=== PATIENT | female | born 1945 | race Caucasian/White ===

== ENCOUNTER → 2019-03-30 | Outpatient (CLI) | payer MEDICARE ==
[~2019-03-30] VITALS: Ht 165.1 cm; Wt 39.6 kg
[~2019-03-30] MED LIST: ACET-2247 GT; ACET650S27 PR; AMANL GT; AMIN960L9 GT; AMIO200T44 GT; AMYL1CAP62 GT; APIX2.5T GT; ASCO500 GT; ASPI81TA40 GT; BACI30OI10 TP; BENZ1TAB10 GT; BISA10SU22 PR; CEPH500 GT; CEPH500 PO; FE PR; LACT30L PO; LEVE500T53 GT; LEVO25TA9 GT; LORA10TA7 GT; METO25 GT; MIRT15 GT; MULT-1119 GT; OLAN5TAB2 GT; OMEG10005 GT; SACC250C3 GT; SENN-265 GT; SERT100T12 GT; VITAD1000 GT; [UNRECOGNIZED DRUG - CODE] GT
[2019-03-30 09:40] VITALS: BP 134/64
== END | disposition home or self-care (01) ==
LOC: HBOWC 09:09
PROVIDERS: ATTEND Surgery Plastic and Reconstructive Surgery
DX: L89.154 Pressure ulcer of sacral region, stage 4 (principal); M46.28 Osteomyelitis of vertebra, sacral and sacrococcygeal region; E43 Unspecified severe protein-calorie malnutrition
CPT/HCPCS: 11042; G0463

== ENCOUNTER → 2019-04-17 | Outpatient (CLI) | payer MEDICARE ==
[~2019-04-17] MED LIST changes: -BACI30OI10 TP; -CEPH500 PO; +DIATRIZOATE MEGLU/SOD 660/100 MG/ML 120 ML BOTTLE ONE
== END | disposition home or self-care (01) ==
LOC: RADMN 13:10
PROVIDERS: ATTEND Registered Nurse
DX: K94.23 Gastrostomy malfunction (principal)
CPT/HCPCS: 49450; C1769; Q9963

== ENCOUNTER → 2019-04-20 | Outpatient (CLI) | payer MEDICARE ==
[~2019-04-20] MED LIST changes: -DIATRIZOATE MEGLU/SOD 660/100 MG/ML 120 ML BOTTLE ONE; +LIDOCAINE 4% 50 ML SOLUTION TP ONE
[2019-04-20 13:12] VITALS: BP 103/58
== END | disposition home or self-care (01) ==
LOC: HBOWC 12:48
PROVIDERS: ATTEND Surgery Plastic and Reconstructive Surgery
DX: L89.154 Pressure ulcer of sacral region, stage 4 (principal); M46.28 Osteomyelitis of vertebra, sacral and sacrococcygeal region; E43 Unspecified severe protein-calorie malnutrition
CPT/HCPCS: 11044

== ENCOUNTER → 2019-04-29 | Outpatient (CLI) | payer MEDICARE ==
[~2019-04-29] MED LIST changes: -LIDOCAINE 4% 50 ML SOLUTION TP ONE
[2019-04-29 08:00] VITALS: BP 124/68
== END | disposition home or self-care (01) ==
LOC: HBOWC 07:54
PROVIDERS: ATTEND Internal Medicine
DX: L89.154 Pressure ulcer of sacral region, stage 4 (principal); E43 Unspecified severe protein-calorie malnutrition; M62.58 Muscle wasting and atrophy, not elsewhere classified, other site; M46.28 Osteomyelitis of vertebra, sacral and sacrococcygeal region; E03.9 Hypothyroidism, unspecified; G80.9 Cerebral palsy, unspecified; I48.91 Unspecified atrial fibrillation; F20.9 Schizophrenia, unspecified; F41.9 Anxiety disorder, unspecified; Z86.73 Personal history of transient ischemic attack (TIA), and cerebral infarction without residual deficits; Z68.1 Body mass index [BMI] 19.9 or less, adult; Z79.82 Long term (current) use of aspirin
CPT/HCPCS: 11042; 97605

== ENCOUNTER → 2019-05-11 | Outpatient (CLI) | payer MEDICARE ==
[~2019-05-11] MED LIST changes: +LIDOCAINE 4% 50 ML SOLUTION TP ONE
[2019-05-11 09:05] VITALS: BP 113/60
== END | disposition home or self-care (01) ==
LOC: HBOWC 08:43
PROVIDERS: ATTEND Surgery Plastic and Reconstructive Surgery
DX: L89.154 Pressure ulcer of sacral region, stage 4 (principal); E43 Unspecified severe protein-calorie malnutrition; M62.58 Muscle wasting and atrophy, not elsewhere classified, other site; M46.28 Osteomyelitis of vertebra, sacral and sacrococcygeal region; E03.9 Hypothyroidism, unspecified; G80.9 Cerebral palsy, unspecified; I48.91 Unspecified atrial fibrillation; F20.9 Schizophrenia, unspecified; Z86.73 Personal history of transient ischemic attack (TIA), and cerebral infarction without residual deficits; Z68.1 Body mass index [BMI] 19.9 or less, adult; Z79.82 Long term (current) use of aspirin
CPT/HCPCS: 11042; 87070; 87205

== ENCOUNTER → 2019-05-25 | Outpatient (CLI) | payer MEDICARE ==
[2019-05-25 09:30] VITALS: BP 113/54
== END | disposition home or self-care (01) ==
LOC: HBOWC 09:08
PROVIDERS: ATTEND Surgery Plastic and Reconstructive Surgery
DX: L89.154 Pressure ulcer of sacral region, stage 4 (principal); E46 Unspecified protein-calorie malnutrition; E03.9 Hypothyroidism, unspecified; G80.9 Cerebral palsy, unspecified; M62.58 Muscle wasting and atrophy, not elsewhere classified, other site; M62.462 Contracture of muscle, left lower leg; M62.461 Contracture of muscle, right lower leg; M62.421 Contracture of muscle, right upper arm; M62.422 Contracture of muscle, left upper arm; M46.28 Osteomyelitis of vertebra, sacral and sacrococcygeal region; I48.91 Unspecified atrial fibrillation; F20.9 Schizophrenia, unspecified; F03.90 Unspecified dementia, unspecified severity, without behavioral disturbance, psychotic disturbance, mood disturbance, and anxiety; F41.9 Anxiety disorder, unspecified; Z68.1 Body mass index [BMI] 19.9 or less, adult; Z86.73 Personal history of transient ischemic attack (TIA), and cerebral infarction without residual deficits; Z79.82 Long term (current) use of aspirin; Z74.01 Bed confinement status
CPT/HCPCS: 11042

== ENCOUNTER → 2019-06-08 | Outpatient (CLI) | payer MEDICARE ==
[~2019-06-08] MED LIST changes: +AMAN50SY5 GT; -AMANL GT
[2019-06-08 09:25] VITALS: BP 121/58
== END | disposition home or self-care (01) ==
LOC: HBOWC 09:12
PROVIDERS: ATTEND Surgery Plastic and Reconstructive Surgery
DX: L89.154 Pressure ulcer of sacral region, stage 4 (principal); M46.28 Osteomyelitis of vertebra, sacral and sacrococcygeal region; E46 Unspecified protein-calorie malnutrition; E03.9 Hypothyroidism, unspecified; G80.9 Cerebral palsy, unspecified; M62.462 Contracture of muscle, left lower leg; M62.461 Contracture of muscle, right lower leg; M62.422 Contracture of muscle, left upper arm; M62.421 Contracture of muscle, right upper arm; M62.50 Muscle wasting and atrophy, not elsewhere classified, unspecified site; I48.91 Unspecified atrial fibrillation; F20.9 Schizophrenia, unspecified; F03.90 Unspecified dementia, unspecified severity, without behavioral disturbance, psychotic disturbance, mood disturbance, and anxiety; F41.9 Anxiety disorder, unspecified; Z86.73 Personal history of transient ischemic attack (TIA), and cerebral infarction without residual deficits; Z68.1 Body mass index [BMI] 19.9 or less, adult; Z79.82 Long term (current) use of aspirin; Z74.01 Bed confinement status
CPT/HCPCS: 11042

== ENCOUNTER → 2019-06-15 | Outpatient (CLI) | payer MEDICARE ==
[2019-06-15 09:30] VITALS: BP 155/83
== END | disposition home or self-care (01) ==
LOC: HBOWC 09:10
PROVIDERS: ATTEND Surgery Plastic and Reconstructive Surgery
DX: L89.154 Pressure ulcer of sacral region, stage 4 (principal); M46.28 Osteomyelitis of vertebra, sacral and sacrococcygeal region; M62.58 Muscle wasting and atrophy, not elsewhere classified, other site; M62.462 Contracture of muscle, left lower leg; M62.461 Contracture of muscle, right lower leg; M62.422 Contracture of muscle, left upper arm; M62.421 Contracture of muscle, right upper arm; E46 Unspecified protein-calorie malnutrition; G80.9 Cerebral palsy, unspecified; E03.9 Hypothyroidism, unspecified; I48.91 Unspecified atrial fibrillation; F20.9 Schizophrenia, unspecified; F03.90 Unspecified dementia, unspecified severity, without behavioral disturbance, psychotic disturbance, mood disturbance, and anxiety; F41.9 Anxiety disorder, unspecified; Z68.1 Body mass index [BMI] 19.9 or less, adult; Z86.73 Personal history of transient ischemic attack (TIA), and cerebral infarction without residual deficits; Z79.82 Long term (current) use of aspirin; Z74.01 Bed confinement status
CPT/HCPCS: 11042; 97605

== ENCOUNTER → 2019-07-06 | Outpatient (CLI) | payer MEDICARE ==
[~2019-07-06] MED LIST changes: -LIDOCAINE 4% 50 ML SOLUTION TP ONE
[2019-07-06 09:15] VITALS: BP 111/51
== END | disposition home or self-care (01) ==
LOC: HBOWC 09:31
PROVIDERS: ATTEND Surgery Plastic and Reconstructive Surgery
DX: L89.154 Pressure ulcer of sacral region, stage 4 (principal); M46.28 Osteomyelitis of vertebra, sacral and sacrococcygeal region; M62.58 Muscle wasting and atrophy, not elsewhere classified, other site; M62.462 Contracture of muscle, left lower leg; M62.461 Contracture of muscle, right lower leg; M62.422 Contracture of muscle, left upper arm; M62.421 Contracture of muscle, right upper arm; E46 Unspecified protein-calorie malnutrition; G80.9 Cerebral palsy, unspecified; E03.9 Hypothyroidism, unspecified; I48.91 Unspecified atrial fibrillation; F20.9 Schizophrenia, unspecified; F03.90 Unspecified dementia, unspecified severity, without behavioral disturbance, psychotic disturbance, mood disturbance, and anxiety; F41.9 Anxiety disorder, unspecified; Z68.1 Body mass index [BMI] 19.9 or less, adult; Z86.73 Personal history of transient ischemic attack (TIA), and cerebral infarction without residual deficits; Z79.82 Long term (current) use of aspirin; Z74.01 Bed confinement status
CPT/HCPCS: 11044; 87070; 87205

== ENCOUNTER → 2019-07-20 | Outpatient (CLI) | payer MEDICARE ==
[~2019-07-20] MED LIST changes: +CHOL100018 GT; +LIDOCAINE 4% 50 ML SOLUTION TP ONE; -VITAD1000 GT
[2019-07-20 09:00] VITALS: BP 106/52
== END | disposition home or self-care (01) ==
LOC: HBOWC 08:53
PROVIDERS: ATTEND Surgery Plastic and Reconstructive Surgery
DX: L89.154 Pressure ulcer of sacral region, stage 4 (principal); M46.28 Osteomyelitis of vertebra, sacral and sacrococcygeal region; M62.58 Muscle wasting and atrophy, not elsewhere classified, other site; M62.462 Contracture of muscle, left lower leg; M62.461 Contracture of muscle, right lower leg; M62.422 Contracture of muscle, left upper arm; M62.421 Contracture of muscle, right upper arm; E46 Unspecified protein-calorie malnutrition; G80.9 Cerebral palsy, unspecified; E03.9 Hypothyroidism, unspecified; I48.91 Unspecified atrial fibrillation; F20.9 Schizophrenia, unspecified; F03.90 Unspecified dementia, unspecified severity, without behavioral disturbance, psychotic disturbance, mood disturbance, and anxiety; F41.9 Anxiety disorder, unspecified; Z68.1 Body mass index [BMI] 19.9 or less, adult; Z86.73 Personal history of transient ischemic attack (TIA), and cerebral infarction without residual deficits; Z79.82 Long term (current) use of aspirin; Z74.01 Bed confinement status
CPT/HCPCS: 11044

== ENCOUNTER → 2019-07-27 | Outpatient (CLI) | payer MEDICARE ==
[~2019-07-27] MED LIST changes: +AMOX-429 GT; +CARV3 GT; +DOCU100T GT; +HYDR-4061 GT; -LIDOCAINE 4% 50 ML SOLUTION TP ONE; +POLY238P2 PO; +ZINC220 GT
[2019-07-27 10:05] VITALS: BP 108/51
== END | disposition home or self-care (01) ==
LOC: HBOWC 09:42
PROVIDERS: ATTEND Surgery Plastic and Reconstructive Surgery
DX: L89.154 Pressure ulcer of sacral region, stage 4 (principal); M46.28 Osteomyelitis of vertebra, sacral and sacrococcygeal region; M62.58 Muscle wasting and atrophy, not elsewhere classified, other site; M62.461 Contracture of muscle, right lower leg; M62.462 Contracture of muscle, left lower leg; M62.422 Contracture of muscle, left upper arm; M62.421 Contracture of muscle, right upper arm; E46 Unspecified protein-calorie malnutrition; G80.9 Cerebral palsy, unspecified; E03.9 Hypothyroidism, unspecified; I48.91 Unspecified atrial fibrillation; F20.9 Schizophrenia, unspecified; F03.90 Unspecified dementia, unspecified severity, without behavioral disturbance, psychotic disturbance, mood disturbance, and anxiety; F41.9 Anxiety disorder, unspecified; Z86.73 Personal history of transient ischemic attack (TIA), and cerebral infarction without residual deficits; Z79.82 Long term (current) use of aspirin; Z68.1 Body mass index [BMI] 19.9 or less, adult
CPT/HCPCS: 11044

== ENCOUNTER → 2019-08-03 | Outpatient (CLI) | payer MEDICARE ==
[~2019-08-03] MED LIST changes: -ACET-2247 GT; -ACET650S27 PR; -AMAN50SY5 GT; -AMIN960L9 GT; -AMYL1CAP62 GT; -ASCO500 GT; -ASPI81TA40 GT; -BISA10SU22 PR; -CEPH500 GT; -CHOL100018 GT; -FE PR; -LACT30L PO; +LIDOCAINE 4% 50 ML SOLUTION TP ONE; -LORA10TA7 GT; -METO25 GT; -MULT-1119 GT; -OMEG10005 GT; -SACC250C3 GT; -SENN-265 GT; -[UNRECOGNIZED DRUG - CODE] GT
[2019-08-03 11:41] VITALS: BP 109/57
== END | disposition home or self-care (01) ==
LOC: HBOWC 09:49
PROVIDERS: ATTEND Surgery Plastic and Reconstructive Surgery
DX: L89.154 Pressure ulcer of sacral region, stage 4 (principal); M62.58 Muscle wasting and atrophy, not elsewhere classified, other site; M46.28 Osteomyelitis of vertebra, sacral and sacrococcygeal region; M62.461 Contracture of muscle, right lower leg; M62.462 Contracture of muscle, left lower leg; M62.422 Contracture of muscle, left upper arm; M62.421 Contracture of muscle, right upper arm; E46 Unspecified protein-calorie malnutrition; G80.9 Cerebral palsy, unspecified; E03.9 Hypothyroidism, unspecified; I48.91 Unspecified atrial fibrillation; F20.9 Schizophrenia, unspecified; F03.90 Unspecified dementia, unspecified severity, without behavioral disturbance, psychotic disturbance, mood disturbance, and anxiety; F41.9 Anxiety disorder, unspecified; Z86.73 Personal history of transient ischemic attack (TIA), and cerebral infarction without residual deficits; Z79.82 Long term (current) use of aspirin; Z68.1 Body mass index [BMI] 19.9 or less, adult
CPT/HCPCS: 11044

== ENCOUNTER → 2019-08-10 | Outpatient (CLI) | payer MEDICARE ==
[~2019-08-10] MED LIST changes: +ACET-3207 GT; +ASCO500 GT; +BISA-72 GT; +ZINC1CAP2 GT; -ZINC220 GT
[2019-08-10 10:05] VITALS: BP 100/54
== END | disposition home or self-care (01) ==
LOC: HBOWC 10:21
PROVIDERS: ATTEND Surgery Plastic and Reconstructive Surgery
DX: L89.154 Pressure ulcer of sacral region, stage 4 (principal); M62.58 Muscle wasting and atrophy, not elsewhere classified, other site; M46.28 Osteomyelitis of vertebra, sacral and sacrococcygeal region; M62.461 Contracture of muscle, right lower leg; M62.462 Contracture of muscle, left lower leg; M62.422 Contracture of muscle, left upper arm; M62.421 Contracture of muscle, right upper arm; E46 Unspecified protein-calorie malnutrition; G80.9 Cerebral palsy, unspecified; E03.9 Hypothyroidism, unspecified; I48.91 Unspecified atrial fibrillation; F20.9 Schizophrenia, unspecified; F03.90 Unspecified dementia, unspecified severity, without behavioral disturbance, psychotic disturbance, mood disturbance, and anxiety; F41.9 Anxiety disorder, unspecified; Z86.73 Personal history of transient ischemic attack (TIA), and cerebral infarction without residual deficits; Z79.82 Long term (current) use of aspirin; Z68.1 Body mass index [BMI] 19.9 or less, adult
CPT/HCPCS: 11044

== ENCOUNTER → 2019-08-25 | Outpatient (CLI) | payer MEDICARE ==
[~2019-08-25] MED LIST changes: -ACET-3207 GT; -ASCO500 GT; -BISA-72 GT; -ZINC1CAP2 GT; +ZINC220 GT
[2019-08-25 10:58] VITALS: BP 122/64
== END | disposition home or self-care (01) ==
LOC: HBOWC 10:23
PROVIDERS: ATTEND Emergency Medicine
DX: L89.154 Pressure ulcer of sacral region, stage 4 (principal); M62.58 Muscle wasting and atrophy, not elsewhere classified, other site; M46.28 Osteomyelitis of vertebra, sacral and sacrococcygeal region; M62.461 Contracture of muscle, right lower leg; M62.462 Contracture of muscle, left lower leg; M62.422 Contracture of muscle, left upper arm; M62.421 Contracture of muscle, right upper arm; E46 Unspecified protein-calorie malnutrition; G80.9 Cerebral palsy, unspecified; E03.9 Hypothyroidism, unspecified; I48.91 Unspecified atrial fibrillation; F20.9 Schizophrenia, unspecified; F03.90 Unspecified dementia, unspecified severity, without behavioral disturbance, psychotic disturbance, mood disturbance, and anxiety; F41.9 Anxiety disorder, unspecified; Z86.73 Personal history of transient ischemic attack (TIA), and cerebral infarction without residual deficits; Z79.82 Long term (current) use of aspirin; Z68.1 Body mass index [BMI] 19.9 or less, adult
CPT/HCPCS: 11042; 97606

== ENCOUNTER → 2019-09-14 | Outpatient (CLI) | payer MEDICARE ==
[~2019-09-14] MED LIST changes: +ACET-3207 GT; +ASCO500 GT; +BISA-72 GT; +LIDOCAINE 2% 5 ML JELLY ONE; -LIDOCAINE 4% 50 ML SOLUTION TP ONE
== END | disposition home or self-care (01) ==
LOC: HBOWC 09:03
PROVIDERS: ATTEND Surgery Plastic and Reconstructive Surgery
DX: L89.154 Pressure ulcer of sacral region, stage 4 (principal); M62.58 Muscle wasting and atrophy, not elsewhere classified, other site; M46.28 Osteomyelitis of vertebra, sacral and sacrococcygeal region; M62.461 Contracture of muscle, right lower leg; M62.462 Contracture of muscle, left lower leg; M62.422 Contracture of muscle, left upper arm; M62.421 Contracture of muscle, right upper arm; E46 Unspecified protein-calorie malnutrition; K21.9 Gastro-esophageal reflux disease without esophagitis; I48.0 Paroxysmal atrial fibrillation; G80.9 Cerebral palsy, unspecified; E03.9 Hypothyroidism, unspecified; F20.9 Schizophrenia, unspecified; F03.90 Unspecified dementia, unspecified severity, without behavioral disturbance, psychotic disturbance, mood disturbance, and anxiety; F41.9 Anxiety disorder, unspecified; H91.90 Unspecified hearing loss, unspecified ear; F32.9 Major depressive disorder, single episode, unspecified; R26.9 Unspecified abnormalities of gait and mobility; M81.0 Age-related osteoporosis without current pathological fracture; H53.2 Diplopia; F84.0 Autistic disorder; Z86.73 Personal history of transient ischemic attack (TIA), and cerebral infarction without residual deficits; Z79.82 Long term (current) use of aspirin; Z68.1 Body mass index [BMI] 19.9 or less, adult
CPT/HCPCS: 11044; 97605

== ENCOUNTER 2019-09-15 12:45 | Inpatient (IN) | payer MEDICARE ==
[~2019-09-15] VITALS: Ht 160 cm; Wt 50.0 kg
[~2019-09-15 12:45] MED LIST changes: -ACET-3207 GT; -ASCO500 GT; -BISA-72 GT; -LIDOCAINE 2% 5 ML JELLY ONE
[2019-09-15 14:33] LABS: BASOPHILS % (AUTO) 0.7 % (0.0-2.0); HEMATOCRIT 33.5 % (36-46); HEMOGLOBIN 10.7 g/dL (12.0-16.0); LYMPHOCYTES # (AUTO) 0.9 K/uL (1.0-4.8); LYMPHOCYTES % (AUTO) 17.7 % (22.0-44.0); MEAN CORPUSCULAR HEMOGLOBIN 28.5 pg (26.0-34.0); MEAN CORPUSCULAR HGB CONC 31.9 G/dL (31.0-37.0); MEAN CORPUSCULAR VOLUME 89 fL (80-100); MONOCYTES # (AUTO) 0.3 K/uL (0.1-1.0); MONOCYTES % (AUTO) 6.8 % (2.0-9.0); NEUTROPHILS # (AUTO) 3.7 K/uL (1.8-7.7); NEUTROPHILS % (AUTO) 72.8 % (40.0-70.0); PLATELET COUNT (AUTO) 210 K/uL (150-450); RED BLOOD CELL COUNT(AUTO) 3.75 MIL/uL (4.00-5.20); RED CELL DISTRIBUTION WIDTH 19.2 % (11.5-14.5)
[2019-09-15 14:53] LABS: INR 1.1 (0.9-1.1); PROTHROMBIN TIME 10.7 SEC (9.4-11.6)
[2019-09-15 14:56] LABS: ALANINE AMINOTRANSFERASE 28 U/L (12-78); ALBUMIN 3.2 g/dL (3.4-5.0); ALKALINE PHOSPHATASE 93 U/L (46-116); ASPARTATE AMINOTRANSFERASE 23 U/L (15-37); BILIRUBIN,TOTAL 0.2 mg/dL (0.1-1.0); CALCIUM, TOTAL 9.4 mg/dL (8.8-10.5); CHLORIDE 100 mmol/L (98-107); CREATININE 0.63 mg/dL (0.60-1.30); GLUCOSE,RANDOM 98 mg/dL (70-110); POTASSIUM 5.2 mmol/L (3.5-5.1); SODIUM SERUM 138 mmol/L (136-145); TOTAL PROTEIN, SERUM 7.6 g/dL (6.4-8.2); UREA NITROGEN, BLOOD 30 mg/dL (7-18)
[2019-09-15 14:57] LABS: BILIRUBIN,URINE NEGATIVE (NEGATIVE); GLUCOSE, URINE (UA) NEGATIVE (NEGATIVE); KETONES,URINE NEGATIVE (NEGATIVE); LEUKOCYTE ESTERASE ,URINE NEGATIVE (NEGATIVE); NITRATE,URINE NEGATIVE (NEGATIVE); OCCULT BLOOD,URINE NEGATIVE (NEGATIVE); PH,URINE 7.5 (5.0-8.0); PROTEIN,URINE NEGATIVE (NEGATIVE)
[2019-09-15 14:58] LABS: APPEARANCE,URINE CLEAR (CLEAR)
[2019-09-15 15:03] LABS: GLOMERULAR FILTR. RATE CALC > 60 mL/min (>60)
[2019-09-15 15:05] LABS: ANION GAP 9 mmol/L (8-16); CARBON DIOXIDE 29 mmol/L (22-29)
[2019-09-15 15:27] LABS: BACTERIA,URINE Rare /HPF (None Seen); SQUAMOUS EPITHELIAL CELL,UR Few /LPF (None Seen); WBC,URINE 0-2 /HPF (0-5)
[2019-09-15] MEDS ORDERED: DEXTROSE 5%-0.45% SODIUM CHL 1,000 ML IV ONE (15:30)
[2019-09-15] MEDS ORDERED: BISACODYL 10 MG RECTAL RECTAL SUPPOSITORY PR PRN (15:30)
[2019-09-15] MEDS ORDERED: ACETAMINOPHEN 325 MG TABLET PO PRN (15:30)
[2019-09-15] MEDS: LevETIRAcetam 500 MG in DEXTROSE 5%-WATER 100 ML IV SCH (17:07)
[2019-09-15] MEDS: HEPARIN SODIUM,PORCINE 5,000 UNITS/ML VIAL SQ SCH (17:09)
[2019-09-15 18:23] VITALS: BP 104/49
[2019-09-15 20:14] VITALS: BP 109/56
[2019-09-15 23:44] VITALS: BP 110/54
[2019-09-16] MEDS: HEPARIN SODIUM,PORCINE 5,000 UNITS/ML VIAL SQ SCH ×3 (00:33→15:56)
[2019-09-16] MEDS: MORPHINE SULFATE 2 MG/ML SYRINGE IVP PRN ×2 (00:41→21:20)
[2019-09-16] MEDS: LevETIRAcetam 500 MG in DEXTROSE 5%-WATER 100 ML IV SCH ×2 (04:04→15:51)
[2019-09-16 05:15] VITALS: BP 115/70
[2019-09-16 08:55] VITALS: BP 114/63
[2019-09-16 16:42] VITALS: BP 151/79
[2019-09-16 20:00] VITALS: BP 109/56
[2019-09-17] VITALS (7 sets, daily range): BP systolic 104–132; BP diastolic 51–80
[2019-09-17] MEDS: HEPARIN SODIUM,PORCINE 5,000 UNITS/ML VIAL SQ SCH ×3 (00:16→15:54)
[2019-09-17] MEDS ORDERED: SODIUM CHLORIDE 0.9% 1,000 ML IV ONE (01:36)
[2019-09-17] MEDS ORDERED: SODIUM CHLORIDE 0.9% IRRIG BTL 1,000 ML IRRIG ONE (02:35)
[2019-09-17] MEDS: LevETIRAcetam 500 MG in DEXTROSE 5%-WATER 100 ML IV SCH ×2 (04:11→15:54)
[2019-09-17 05:39] LABS: ANION GAP 8 mmol/L (8-16); CALCIUM, TOTAL 8.6 mg/dL (8.8-10.5); CARBON DIOXIDE 29 mmol/L (22-29); CHLORIDE 104 mmol/L (98-107); CREATININE 0.62 mg/dL (0.60-1.30); GLUCOSE,RANDOM 99 mg/dL (70-110); POTASSIUM 3.9 mmol/L (3.5-5.1); SODIUM SERUM 141 mmol/L (136-145); UREA NITROGEN, BLOOD 18 mg/dL (7-18)
[2019-09-17 05:41] LABS: BASOPHILS % (AUTO) 0.7 % (0.0-2.0); EOSINOPHILS % (AUTO) 2.3 % (1.0-6.0); HEMATOCRIT 31.7 % (36-46); HEMOGLOBIN 10.4 g/dL (12.0-16.0); LYMPHOCYTES % (AUTO) 20.9 % (22.0-44.0); MEAN CORPUSCULAR HGB CONC 32.7 G/dL (31.0-37.0); MEAN CORPUSCULAR VOLUME 89 fL (80-100); MONOCYTES # (AUTO) 0.4 K/uL (0.1-1.0); MONOCYTES % (AUTO) 7.1 % (2.0-9.0); NEUTROPHILS # (AUTO) 3.4 K/uL (1.8-7.7); PLATELET COUNT (AUTO) 193 K/uL (150-450); RED BLOOD CELL COUNT(AUTO) 3.57 MIL/uL (4.00-5.20)
[2019-09-17 05:53] LABS: GLOMERULAR FILTR. RATE CALC > 60 mL/min (>60)
[2019-09-17] MEDS: DEXTROSE 5%-0.45% SODIUM CHL 1,000 ML IV SCH (11:38)
[2019-09-18] MEDS: DEXTROSE 5%-0.45% SODIUM CHL 1,000 ML IV SCH ×2 (04:09→20:49)
[2019-09-18] MEDS: LevETIRAcetam 500 MG in DEXTROSE 5%-WATER 100 ML IV SCH ×2 (04:16→17:34)
[2019-09-18 04:43] VITALS: BP 123/57
[2019-09-18 07:20] VITALS: BP 129/49
[2019-09-18] MEDS ORDERED: KETAMINE HCL 50 MG/ML 10 ML VIAL IVP ONE (07:25)
[2019-09-18] MEDS: HEPARIN SODIUM,PORCINE 5,000 UNITS/ML VIAL SQ SCH ×3 (08:00→16:00)
[2019-09-18] MEDS ORDERED: SODIUM CHLORIDE 0.9% 1,000 ML IV ONE ×2 (09:20→11:00)
[2019-09-18 11:36] VITALS: BP 146/62
[2019-09-18] MEDS ORDERED: PROPOFOL 1% 20 ML VIAL IVP ONE (12:00)
[2019-09-18] MEDS ORDERED: LIDOCAINE/PF 2% 5 ML SYRINGE IVP ONE (12:00)
[2019-09-18 15:20] VITALS: BP 149/72
[2019-09-18 20:01] VITALS: BP 120/65
[2019-09-18] MEDS: ASCORBIC ACID 500 MG TABLET GT SCH (20:50)
[2019-09-18 23:13] VITALS: BP 121/61
[2019-09-19] MEDS: HEPARIN SODIUM,PORCINE 5,000 UNITS/ML VIAL SQ SCH ×2 (00:29→08:02)
[2019-09-19 04:00] VITALS: BP 141/75
[2019-09-19] MEDS: LevETIRAcetam 500 MG in DEXTROSE 5%-WATER 100 ML IV SCH ×2 (04:24→15:39)
[2019-09-19] MEDS: ASCORBIC ACID 500 MG TABLET GT SCH (08:02)
[2019-09-19 08:11] VITALS: BP 123/75
[2019-09-19] MEDS ORDERED: ASCO500 GT (08:45)
[2019-09-19] MEDS ORDERED: ACET-3207 GT (08:46)
[2019-09-19] MEDS ORDERED: BISA-72 GT (08:47)
[2019-09-19] MEDS ORDERED: ZINC SULFATE 220 MG CAPSULE GT SCH (09:00)
[2019-09-19] MEDS ORDERED: INFLUENZA VIRUS VACCINE QVS 2019-20 (3YR+)/PF 60 MCG/0.5 ML SYRINGE IM ONE (09:00)
[2019-09-19 11:50] VITALS: BP 142/76
[2019-09-19 14:55] VITALS: BP 141/85
== END 2019-09-19 17:00 | DRG 393 ==
LOC: EMS 12:47 → 6N 15:32
PROVIDERS: ADMIT Internal Medicine; ATTEND Internal Medicine
PROC: 0DH63UZ Insertion of Feeding Device into Stomach, Percutaneous Approach (ICD-10-PCS; principal; 2019-09-18 12:30)
PROC: 3E02340 Introduction of Influenza Vaccine into Muscle, Percutaneous Approach (ICD-10-PCS; 2019-09-19)
DX: Z43.1 Encounter for attention to gastrostomy (principal); E43 Unspecified severe protein-calorie malnutrition; L89.154 Pressure ulcer of sacral region, stage 4; R47.02 Dysphasia; I48.0 Paroxysmal atrial fibrillation; G80.9 Cerebral palsy, unspecified; E03.9 Hypothyroidism, unspecified; E86.0 Dehydration; F20.9 Schizophrenia, unspecified; G40.909 Epilepsy, unspecified, not intractable, without status epilepticus; R13.10 Dysphagia, unspecified; R62.7 Adult failure to thrive; Z86.73 Personal history of transient ischemic attack (TIA), and cerebral infarction without residual deficits; Z88.5 Allergy status to narcotic agent; Z88.8 Allergy status to other drugs, medicaments and biological substances; Z23 Encounter for immunization
CPT/HCPCS: 36555; 74176; 87081; 90686; 93005; J0712; J1644; J2270; J2704; J3490; J7030; J7060

== ENCOUNTER → 2019-09-28 | Outpatient (CLI) | payer MEDICARE ==
[~2019-09-28] MED LIST changes: +ACET-3207 GT; -AMIO200T44 GT; -AMOX-429 GT; +ASCO500 GT; +BISA-72 GT; +LIDOCAINE 4% 50 ML SOLUTION ONE; -OLAN5TAB2 GT; -SERT100T12 GT; -ZINC220 GT
== END | disposition home or self-care (01) ==
LOC: HBOWC 09:00
PROVIDERS: ATTEND Surgery Plastic and Reconstructive Surgery
DX: L89.154 Pressure ulcer of sacral region, stage 4 (principal); M62.58 Muscle wasting and atrophy, not elsewhere classified, other site; M46.28 Osteomyelitis of vertebra, sacral and sacrococcygeal region; M62.461 Contracture of muscle, right lower leg; M62.462 Contracture of muscle, left lower leg; M62.422 Contracture of muscle, left upper arm; M62.421 Contracture of muscle, right upper arm; E46 Unspecified protein-calorie malnutrition; K21.9 Gastro-esophageal reflux disease without esophagitis; I48.0 Paroxysmal atrial fibrillation; G80.9 Cerebral palsy, unspecified; E03.9 Hypothyroidism, unspecified; F20.9 Schizophrenia, unspecified; F03.90 Unspecified dementia, unspecified severity, without behavioral disturbance, psychotic disturbance, mood disturbance, and anxiety; F41.9 Anxiety disorder, unspecified; H91.90 Unspecified hearing loss, unspecified ear; F32.9 Major depressive disorder, single episode, unspecified; M81.0 Age-related osteoporosis without current pathological fracture; H53.2 Diplopia; F84.0 Autistic disorder; G40.909 Epilepsy, unspecified, not intractable, without status epilepticus; Z86.73 Personal history of transient ischemic attack (TIA), and cerebral infarction without residual deficits; Z88.8 Allergy status to other drugs, medicaments and biological substances; Z88.5 Allergy status to narcotic agent; Z68.1 Body mass index [BMI] 19.9 or less, adult; Z79.82 Long term (current) use of aspirin
CPT/HCPCS: 11044

== ENCOUNTER → 2019-10-05 | Outpatient (CLI) | payer MEDICARE ==
[~2019-10-05] MED LIST changes: -LIDOCAINE 4% 50 ML SOLUTION ONE
== END | disposition home or self-care (01) ==
LOC: HBOWC 08:04
PROVIDERS: ATTEND Surgery Plastic and Reconstructive Surgery
DX: L89.154 Pressure ulcer of sacral region, stage 4 (principal); M62.58 Muscle wasting and atrophy, not elsewhere classified, other site; M46.28 Osteomyelitis of vertebra, sacral and sacrococcygeal region; M62.461 Contracture of muscle, right lower leg; M62.462 Contracture of muscle, left lower leg; M62.422 Contracture of muscle, left upper arm; M62.421 Contracture of muscle, right upper arm; E46 Unspecified protein-calorie malnutrition; K21.9 Gastro-esophageal reflux disease without esophagitis; I48.0 Paroxysmal atrial fibrillation; G80.9 Cerebral palsy, unspecified; E03.9 Hypothyroidism, unspecified; F20.9 Schizophrenia, unspecified; F03.90 Unspecified dementia, unspecified severity, without behavioral disturbance, psychotic disturbance, mood disturbance, and anxiety; F41.9 Anxiety disorder, unspecified; H91.90 Unspecified hearing loss, unspecified ear; F32.9 Major depressive disorder, single episode, unspecified; M81.0 Age-related osteoporosis without current pathological fracture; H53.2 Diplopia; F84.0 Autistic disorder; G40.909 Epilepsy, unspecified, not intractable, without status epilepticus; Z86.73 Personal history of transient ischemic attack (TIA), and cerebral infarction without residual deficits; Z88.8 Allergy status to other drugs, medicaments and biological substances; Z88.5 Allergy status to narcotic agent; Z68.1 Body mass index [BMI] 19.9 or less, adult; Z79.82 Long term (current) use of aspirin
CPT/HCPCS: 11044

== ENCOUNTER → 2019-10-12 | Outpatient (CLI) | payer MEDICARE ==
[~2019-10-12] MED LIST changes: +LIDOCAINE 4% 50 ML SOLUTION TP ONE
== END | disposition home or self-care (01) ==
LOC: HBOWC 08:18
PROVIDERS: ATTEND Surgery Plastic and Reconstructive Surgery
DX: L89.154 Pressure ulcer of sacral region, stage 4 (principal); M62.58 Muscle wasting and atrophy, not elsewhere classified, other site; M46.28 Osteomyelitis of vertebra, sacral and sacrococcygeal region; M62.461 Contracture of muscle, right lower leg; M62.462 Contracture of muscle, left lower leg; M62.422 Contracture of muscle, left upper arm; M62.421 Contracture of muscle, right upper arm; E46 Unspecified protein-calorie malnutrition; K21.9 Gastro-esophageal reflux disease without esophagitis; I48.0 Paroxysmal atrial fibrillation; G80.9 Cerebral palsy, unspecified; E03.9 Hypothyroidism, unspecified; F20.9 Schizophrenia, unspecified; F03.90 Unspecified dementia, unspecified severity, without behavioral disturbance, psychotic disturbance, mood disturbance, and anxiety; F41.9 Anxiety disorder, unspecified; H91.90 Unspecified hearing loss, unspecified ear; F32.9 Major depressive disorder, single episode, unspecified; M81.0 Age-related osteoporosis without current pathological fracture; H53.2 Diplopia; F84.0 Autistic disorder; G40.909 Epilepsy, unspecified, not intractable, without status epilepticus; Z86.73 Personal history of transient ischemic attack (TIA), and cerebral infarction without residual deficits; Z88.8 Allergy status to other drugs, medicaments and biological substances; Z88.5 Allergy status to narcotic agent; Z68.1 Body mass index [BMI] 19.9 or less, adult; Z79.82 Long term (current) use of aspirin
CPT/HCPCS: 11044

== ENCOUNTER → 2019-10-19 | Outpatient (CLI) | payer MEDICARE, MEDICAID ==
[~2019-10-19] MED LIST changes: -LIDOCAINE 4% 50 ML SOLUTION TP ONE
== END | disposition home or self-care (01) ==
LOC: HBOWC 08:22
PROVIDERS: ATTEND Surgery Plastic and Reconstructive Surgery
DX: L89.154 Pressure ulcer of sacral region, stage 4 (principal); M62.58 Muscle wasting and atrophy, not elsewhere classified, other site; M46.28 Osteomyelitis of vertebra, sacral and sacrococcygeal region; M62.461 Contracture of muscle, right lower leg; M62.462 Contracture of muscle, left lower leg; M62.422 Contracture of muscle, left upper arm; M62.421 Contracture of muscle, right upper arm; E46 Unspecified protein-calorie malnutrition; K21.9 Gastro-esophageal reflux disease without esophagitis; I48.0 Paroxysmal atrial fibrillation; G80.9 Cerebral palsy, unspecified; E03.9 Hypothyroidism, unspecified; F20.9 Schizophrenia, unspecified; F03.90 Unspecified dementia, unspecified severity, without behavioral disturbance, psychotic disturbance, mood disturbance, and anxiety; F41.9 Anxiety disorder, unspecified; H91.90 Unspecified hearing loss, unspecified ear; F32.9 Major depressive disorder, single episode, unspecified; M81.0 Age-related osteoporosis without current pathological fracture; H53.2 Diplopia; F84.0 Autistic disorder; G40.909 Epilepsy, unspecified, not intractable, without status epilepticus; Z86.73 Personal history of transient ischemic attack (TIA), and cerebral infarction without residual deficits; Z88.8 Allergy status to other drugs, medicaments and biological substances; Z88.5 Allergy status to narcotic agent; Z68.1 Body mass index [BMI] 19.9 or less, adult; Z79.82 Long term (current) use of aspirin
CPT/HCPCS: 11044

== ENCOUNTER → 2019-10-26 | Outpatient (CLI) | payer MEDICARE, MEDICAID | END | disposition home or self-care (01) | LOC: HBOWC 08:08 | PROVIDERS: ATTEND Surgery Plastic and Reconstructive Surgery | DX: L89.154 Pressure ulcer of sacral region, stage 4 (principal); M62.58 Muscle wasting and atrophy, not elsewhere classified, other site; M46.28 Osteomyelitis of vertebra, sacral and sacrococcygeal region; M62.461 Contracture of muscle, right lower leg; M62.462 Contracture of muscle, left lower leg; M62.422 Contracture of muscle, left upper arm; M62.421 Contracture of muscle, right upper arm; E46 Unspecified protein-calorie malnutrition; K21.9 Gastro-esophageal reflux disease without esophagitis; I48.0 Paroxysmal atrial fibrillation; G80.9 Cerebral palsy, unspecified; E03.9 Hypothyroidism, unspecified; F20.9 Schizophrenia, unspecified; F03.90 Unspecified dementia, unspecified severity, without behavioral disturbance, psychotic disturbance, mood disturbance, and anxiety; F41.9 Anxiety disorder, unspecified; H91.90 Unspecified hearing loss, unspecified ear; F32.9 Major depressive disorder, single episode, unspecified; M81.0 Age-related osteoporosis without current pathological fracture; H53.2 Diplopia; F84.0 Autistic disorder; G40.909 Epilepsy, unspecified, not intractable, without status epilepticus; Z86.73 Personal history of transient ischemic attack (TIA), and cerebral infarction without residual deficits; Z88.8 Allergy status to other drugs, medicaments and biological substances; Z88.5 Allergy status to narcotic agent; Z68.1 Body mass index [BMI] 19.9 or less, adult; Z79.82 Long term (current) use of aspirin | CPT/HCPCS: 11044 ==

== ENCOUNTER → 2019-11-02 | Outpatient (CLI) | payer MEDICARE, MEDICAID ==
[~2019-11-02] MED LIST changes: +LIDOCAINE 4% 50 ML SOLUTION TP ONE; +MIRT-92 GT; -MIRT15 GT
== END | disposition home or self-care (01) ==
LOC: HBOWC 08:17
PROVIDERS: ATTEND Surgery Plastic and Reconstructive Surgery
DX: L89.154 Pressure ulcer of sacral region, stage 4 (principal); M62.58 Muscle wasting and atrophy, not elsewhere classified, other site; M46.28 Osteomyelitis of vertebra, sacral and sacrococcygeal region; M62.461 Contracture of muscle, right lower leg; M62.462 Contracture of muscle, left lower leg; M62.422 Contracture of muscle, left upper arm; M62.421 Contracture of muscle, right upper arm; E46 Unspecified protein-calorie malnutrition; K21.9 Gastro-esophageal reflux disease without esophagitis; I48.0 Paroxysmal atrial fibrillation; G80.9 Cerebral palsy, unspecified; E03.9 Hypothyroidism, unspecified; F20.9 Schizophrenia, unspecified; F03.90 Unspecified dementia, unspecified severity, without behavioral disturbance, psychotic disturbance, mood disturbance, and anxiety; F41.9 Anxiety disorder, unspecified; H91.90 Unspecified hearing loss, unspecified ear; F32.9 Major depressive disorder, single episode, unspecified; M81.0 Age-related osteoporosis without current pathological fracture; H53.2 Diplopia; F84.0 Autistic disorder; G40.909 Epilepsy, unspecified, not intractable, without status epilepticus; Z86.73 Personal history of transient ischemic attack (TIA), and cerebral infarction without residual deficits; Z88.8 Allergy status to other drugs, medicaments and biological substances; Z88.5 Allergy status to narcotic agent; Z68.1 Body mass index [BMI] 19.9 or less, adult; Z79.82 Long term (current) use of aspirin
CPT/HCPCS: 11044; 97605

== ENCOUNTER → 2019-11-09 | Outpatient (CLI) | payer MEDICARE, MEDICAID ==
[~2019-11-09] MED LIST changes: -LIDOCAINE 4% 50 ML SOLUTION TP ONE
== END | disposition home or self-care (01) ==
LOC: HBOWC 08:18
PROVIDERS: ATTEND Surgery Plastic and Reconstructive Surgery
DX: L89.154 Pressure ulcer of sacral region, stage 4 (principal); M62.58 Muscle wasting and atrophy, not elsewhere classified, other site; M46.28 Osteomyelitis of vertebra, sacral and sacrococcygeal region; M62.461 Contracture of muscle, right lower leg; M62.462 Contracture of muscle, left lower leg; M62.422 Contracture of muscle, left upper arm; M62.421 Contracture of muscle, right upper arm; E46 Unspecified protein-calorie malnutrition; K21.9 Gastro-esophageal reflux disease without esophagitis; I48.0 Paroxysmal atrial fibrillation; G80.9 Cerebral palsy, unspecified; E03.9 Hypothyroidism, unspecified; F20.9 Schizophrenia, unspecified; F03.90 Unspecified dementia, unspecified severity, without behavioral disturbance, psychotic disturbance, mood disturbance, and anxiety; F41.9 Anxiety disorder, unspecified; H91.90 Unspecified hearing loss, unspecified ear; F32.9 Major depressive disorder, single episode, unspecified; M81.0 Age-related osteoporosis without current pathological fracture; H53.2 Diplopia; F84.0 Autistic disorder; H53.8 Other visual disturbances; G40.909 Epilepsy, unspecified, not intractable, without status epilepticus; R26.9 Unspecified abnormalities of gait and mobility; Z86.73 Personal history of transient ischemic attack (TIA), and cerebral infarction without residual deficits; Z88.8 Allergy status to other drugs, medicaments and biological substances; Z88.5 Allergy status to narcotic agent; Z68.1 Body mass index [BMI] 19.9 or less, adult; Z79.82 Long term (current) use of aspirin
CPT/HCPCS: 11043; 11044; 97605

== ENCOUNTER → 2019-11-16 | Outpatient (CLI) | payer MEDICARE, MEDICAID ==
[~2019-11-16] MED LIST changes: +LIDOCAINE 4% 50 ML SOLUTION ONE
== END | disposition home or self-care (01) ==
LOC: HBOWC 08:00
PROVIDERS: ATTEND Surgery Plastic and Reconstructive Surgery
DX: L89.154 Pressure ulcer of sacral region, stage 4 (principal); M62.58 Muscle wasting and atrophy, not elsewhere classified, other site; M46.28 Osteomyelitis of vertebra, sacral and sacrococcygeal region; M62.461 Contracture of muscle, right lower leg; M62.462 Contracture of muscle, left lower leg; M62.422 Contracture of muscle, left upper arm; M62.421 Contracture of muscle, right upper arm; E46 Unspecified protein-calorie malnutrition; K21.9 Gastro-esophageal reflux disease without esophagitis; I48.0 Paroxysmal atrial fibrillation; G80.9 Cerebral palsy, unspecified; E03.9 Hypothyroidism, unspecified; F20.9 Schizophrenia, unspecified; F03.90 Unspecified dementia, unspecified severity, without behavioral disturbance, psychotic disturbance, mood disturbance, and anxiety; F41.9 Anxiety disorder, unspecified; H91.90 Unspecified hearing loss, unspecified ear; F32.9 Major depressive disorder, single episode, unspecified; M81.0 Age-related osteoporosis without current pathological fracture; H53.2 Diplopia; F84.0 Autistic disorder; H53.8 Other visual disturbances; G40.909 Epilepsy, unspecified, not intractable, without status epilepticus; R26.9 Unspecified abnormalities of gait and mobility; Z86.73 Personal history of transient ischemic attack (TIA), and cerebral infarction without residual deficits; Z88.8 Allergy status to other drugs, medicaments and biological substances; Z88.5 Allergy status to narcotic agent; Z68.1 Body mass index [BMI] 19.9 or less, adult; Z79.82 Long term (current) use of aspirin
CPT/HCPCS: 11044

== ENCOUNTER → 2019-11-23 | Outpatient (CLI) | payer MEDICARE, MEDICAID ==
[~2019-11-23] MED LIST changes: -LIDOCAINE 4% 50 ML SOLUTION ONE; +LIDOCAINE 4% 50 ML SOLUTION TP ONE
== END | disposition home or self-care (01) ==
LOC: HBOWC 08:05
PROVIDERS: ATTEND Surgery Plastic and Reconstructive Surgery
DX: L89.154 Pressure ulcer of sacral region, stage 4 (principal); M62.58 Muscle wasting and atrophy, not elsewhere classified, other site; M46.28 Osteomyelitis of vertebra, sacral and sacrococcygeal region; M62.461 Contracture of muscle, right lower leg; M62.462 Contracture of muscle, left lower leg; M62.422 Contracture of muscle, left upper arm; M62.421 Contracture of muscle, right upper arm; E46 Unspecified protein-calorie malnutrition; K21.9 Gastro-esophageal reflux disease without esophagitis; I48.0 Paroxysmal atrial fibrillation; G80.9 Cerebral palsy, unspecified; E03.9 Hypothyroidism, unspecified; F20.9 Schizophrenia, unspecified; F03.90 Unspecified dementia, unspecified severity, without behavioral disturbance, psychotic disturbance, mood disturbance, and anxiety; F41.9 Anxiety disorder, unspecified; H91.90 Unspecified hearing loss, unspecified ear; F32.9 Major depressive disorder, single episode, unspecified; M81.0 Age-related osteoporosis without current pathological fracture; H53.2 Diplopia; F84.0 Autistic disorder; H53.8 Other visual disturbances; G40.909 Epilepsy, unspecified, not intractable, without status epilepticus; R26.9 Unspecified abnormalities of gait and mobility; Z86.73 Personal history of transient ischemic attack (TIA), and cerebral infarction without residual deficits; Z88.8 Allergy status to other drugs, medicaments and biological substances; Z88.5 Allergy status to narcotic agent; Z68.1 Body mass index [BMI] 19.9 or less, adult; Z79.82 Long term (current) use of aspirin
CPT/HCPCS: 11044

== ENCOUNTER → 2019-11-30 | Outpatient (CLI) | payer MEDICARE, MEDICAID | END | disposition home or self-care (01) | LOC: HBOWC 07:43 | PROVIDERS: ATTEND Surgery Plastic and Reconstructive Surgery | DX: L89.154 Pressure ulcer of sacral region, stage 4 (principal); M62.58 Muscle wasting and atrophy, not elsewhere classified, other site; M46.28 Osteomyelitis of vertebra, sacral and sacrococcygeal region; M62.461 Contracture of muscle, right lower leg; M62.462 Contracture of muscle, left lower leg; M62.422 Contracture of muscle, left upper arm; M62.421 Contracture of muscle, right upper arm; E46 Unspecified protein-calorie malnutrition; K21.9 Gastro-esophageal reflux disease without esophagitis; I48.0 Paroxysmal atrial fibrillation; G80.9 Cerebral palsy, unspecified; E03.9 Hypothyroidism, unspecified; F20.9 Schizophrenia, unspecified; F03.90 Unspecified dementia, unspecified severity, without behavioral disturbance, psychotic disturbance, mood disturbance, and anxiety; F41.9 Anxiety disorder, unspecified; H91.90 Unspecified hearing loss, unspecified ear; F32.9 Major depressive disorder, single episode, unspecified; M81.0 Age-related osteoporosis without current pathological fracture; H53.2 Diplopia; F84.0 Autistic disorder; H53.8 Other visual disturbances; G40.909 Epilepsy, unspecified, not intractable, without status epilepticus; R26.9 Unspecified abnormalities of gait and mobility; Z86.73 Personal history of transient ischemic attack (TIA), and cerebral infarction without residual deficits; Z88.8 Allergy status to other drugs, medicaments and biological substances; Z88.5 Allergy status to narcotic agent; Z68.1 Body mass index [BMI] 19.9 or less, adult; Z79.82 Long term (current) use of aspirin | CPT/HCPCS: 11044 ==

== ENCOUNTER → 2019-12-07 | Outpatient (CLI) | payer MEDICARE, MEDICAID ==
[~2019-12-07] MED LIST changes: +LEVO50 GT; +LEVO750P7 GT; +LEVO750T68 PO; -LIDOCAINE 4% 50 ML SOLUTION TP ONE
== END | disposition home or self-care (01) ==
LOC: HBOWC 08:04
PROVIDERS: ATTEND Surgery Plastic and Reconstructive Surgery
DX: L89.154 Pressure ulcer of sacral region, stage 4 (principal); M62.58 Muscle wasting and atrophy, not elsewhere classified, other site; M46.28 Osteomyelitis of vertebra, sacral and sacrococcygeal region; M62.461 Contracture of muscle, right lower leg; M62.462 Contracture of muscle, left lower leg; M62.422 Contracture of muscle, left upper arm; M62.421 Contracture of muscle, right upper arm; E46 Unspecified protein-calorie malnutrition; K21.9 Gastro-esophageal reflux disease without esophagitis; I48.0 Paroxysmal atrial fibrillation; G80.9 Cerebral palsy, unspecified; E03.9 Hypothyroidism, unspecified; F20.9 Schizophrenia, unspecified; F03.90 Unspecified dementia, unspecified severity, without behavioral disturbance, psychotic disturbance, mood disturbance, and anxiety; F41.9 Anxiety disorder, unspecified; H91.90 Unspecified hearing loss, unspecified ear; F32.9 Major depressive disorder, single episode, unspecified; M81.0 Age-related osteoporosis without current pathological fracture; H53.2 Diplopia; F84.0 Autistic disorder; H53.8 Other visual disturbances; G40.909 Epilepsy, unspecified, not intractable, without status epilepticus; R26.9 Unspecified abnormalities of gait and mobility; Z86.73 Personal history of transient ischemic attack (TIA), and cerebral infarction without residual deficits; Z88.8 Allergy status to other drugs, medicaments and biological substances; Z88.5 Allergy status to narcotic agent; Z68.1 Body mass index [BMI] 19.9 or less, adult; Z79.82 Long term (current) use of aspirin
CPT/HCPCS: 11043

== ENCOUNTER → 2019-12-14 | Outpatient (CLI) | payer MEDICARE, MEDICAID ==
[~2019-12-14] MED LIST changes: +LIDOCAINE 4% 50 ML SOLUTION TP ONE
== END | disposition home or self-care (01) ==
LOC: HBOWC 08:31
PROVIDERS: ATTEND Surgery Plastic and Reconstructive Surgery
DX: L89.154 Pressure ulcer of sacral region, stage 4 (principal); M62.58 Muscle wasting and atrophy, not elsewhere classified, other site; M46.28 Osteomyelitis of vertebra, sacral and sacrococcygeal region; M62.461 Contracture of muscle, right lower leg; M62.462 Contracture of muscle, left lower leg; M62.422 Contracture of muscle, left upper arm; M62.421 Contracture of muscle, right upper arm; E46 Unspecified protein-calorie malnutrition; K21.9 Gastro-esophageal reflux disease without esophagitis; I48.0 Paroxysmal atrial fibrillation; G80.9 Cerebral palsy, unspecified; E03.9 Hypothyroidism, unspecified; F20.9 Schizophrenia, unspecified; F03.90 Unspecified dementia, unspecified severity, without behavioral disturbance, psychotic disturbance, mood disturbance, and anxiety; F41.9 Anxiety disorder, unspecified; H91.90 Unspecified hearing loss, unspecified ear; F32.9 Major depressive disorder, single episode, unspecified; M81.0 Age-related osteoporosis without current pathological fracture; H53.2 Diplopia; F84.0 Autistic disorder; H53.8 Other visual disturbances; G40.909 Epilepsy, unspecified, not intractable, without status epilepticus; R26.9 Unspecified abnormalities of gait and mobility; Z86.73 Personal history of transient ischemic attack (TIA), and cerebral infarction without residual deficits; Z88.8 Allergy status to other drugs, medicaments and biological substances; Z88.5 Allergy status to narcotic agent; Z68.1 Body mass index [BMI] 19.9 or less, adult; Z79.82 Long term (current) use of aspirin
CPT/HCPCS: 11043

== ENCOUNTER 2019-12-16 23:34 | Inpatient (IN) | payer MEDICARE, MEDICAID ==
[~2019-12-16] VITALS: Ht 177.8 cm; Wt 47.4 kg
[~2019-12-16 23:34] MED LIST changes: -LEVO50 GT; -LEVO750P7 GT; -LEVO750T68 PO; -LIDOCAINE 4% 50 ML SOLUTION TP ONE
[2019-12-17] VITALS (7 sets, daily range): BP systolic 101–145; BP diastolic 54–79
[2019-12-17] MEDS ORDERED: 0.9% SODIUM CHLORIDE 10 ML SYRINGE IVP PRN ×2 (00:15→03:30)
[2019-12-17] MEDS ORDERED: PIPERACILLIN/TAZO 3.375 GM/D5W 50 ML IV ONE (00:15)
[2019-12-17] MEDS ORDERED: IPRATROPIUM BROMIDE 0.5 MG/2.5 ML NEB SOLUTION NEB ONE (00:15)
[2019-12-17] MEDS ORDERED: ALBUTEROL SULFATE 2.5 MG/0.5 ML NEB SOLUTION NEB ONE (00:15)
[2019-12-17] MEDS ORDERED: VANCOMYCIN HCL 1 GM/D5% WATER 200 ML IV ONE (00:15)
[2019-12-17] MEDS ORDERED: LEVO750P7 GT (00:17)
[2019-12-17] MEDS ORDERED: 0.9% SODIUM CHLORIDE 5 ML NEB SOLUTION NEB ONE (00:21)
[2019-12-17 00:47] LABS: BASOPHILS % (AUTO) 0.1 % (0.0-2.0); EOSINOPHILS % (AUTO) 0.1 % (1.0-6.0); HEMATOCRIT 35.8 % (36-46); HEMOGLOBIN 11.4 g/dL (12.0-16.0); LYMPHOCYTES # (AUTO) 0.7 K/uL (1.0-4.8); LYMPHOCYTES % (AUTO) 6.6 % (22.0-44.0); MEAN CORPUSCULAR HEMOGLOBIN 29.3 pg (26.0-34.0); MEAN CORPUSCULAR HGB CONC 31.7 G/dL (31.0-37.0); MEAN CORPUSCULAR VOLUME 92 fL (80-100); MONOCYTES # (AUTO) 0.9 K/uL (0.1-1.0); MONOCYTES % (AUTO) 8.2 % (2.0-9.0); NEUTROPHILS # (AUTO) 9.5 K/uL (1.8-7.7); PLATELET COUNT (AUTO) 215 K/uL (150-450); RED BLOOD CELL COUNT(AUTO) 3.88 MIL/uL (4.00-5.20); RED CELL DISTRIBUTION WIDTH 15.7 % (11.5-14.5)
[2019-12-17 00:58] LABS: INR 1.1 (0.9-1.1); PROTHROMBIN TIME 11.5 SEC (9.4-11.6)
[2019-12-17 01:01] LABS: ALANINE AMINOTRANSFERASE 23 U/L (12-78); ALBUMIN 2.4 g/dL (3.4-5.0); ALKALINE PHOSPHATASE 87 U/L (46-116); ANION GAP -5 mmol/L (8-16); ASPARTATE AMINOTRANSFERASE 13 U/L (15-37); BILIRUBIN,TOTAL 0.2 mg/dL (0.1-1.0); CALCIUM, TOTAL 9.3 mg/dL (8.8-10.5); CHLORIDE 98 mmol/L (98-107); CREATININE 0.55 mg/dL (0.60-1.30); GLUCOSE,RANDOM 161 mg/dL (70-110); POTASSIUM 4.8 mmol/L (3.5-5.1); SODIUM SERUM 138 mmol/L (136-145); TOTAL PROTEIN, SERUM 6.9 g/dL (6.4-8.2); UREA NITROGEN, BLOOD 20 mg/dL (7-18)
[2019-12-17 01:04] LABS: CARBON DIOXIDE 45 mmol/L (22-29); GLOMERULAR FILTR. RATE CALC > 60 mL/min (>60)
[2019-12-17 01:19] LABS: INFLUENZA TYPE A NEGATIVE FOR TYPE A (NEGATIVE); INFLUENZA TYPE B NEGATIVE FOR TYPE B (NEGATIVE)
[2019-12-17 01:31] LABS: APPEARANCE,URINE CLOUDY (CLEAR); BILIRUBIN,URINE NEGATIVE (NEGATIVE); GLUCOSE, URINE (UA) NEGATIVE (NEGATIVE); KETONES,URINE NEGATIVE (NEGATIVE); LEUKOCYTE ESTERASE ,URINE SMALL (NEGATIVE); NITRATE,URINE POSITIVE (NEGATIVE); OCCULT BLOOD,URINE LARGE (NEGATIVE); PH,URINE 5.5 (5.0-8.0); PROTEIN,URINE SEE CONFIRM (NEGATIVE)
[2019-12-17 01:40] LABS: BACTERIA,URINE Rare /HPF (None Seen); RBC,URINE >100 /HPF (0-2); SQUAMOUS EPITHELIAL CELL,UR Rare /LPF (None Seen); SULFOSALICYLIC ACID,URINE 1+ (Negative); YEAST,URINE Few /HPF (None Seen)
[2019-12-17] MEDS ORDERED: SODIUM CHLORIDE 0.9% 1,000 ML ONE (02:52)
[2019-12-17] MEDS ORDERED: SODIUM CHLORIDE 0.9% 1,000 ML IV ONE ×2 (03:00)
[2019-12-17] MEDS ORDERED: ONDANSETRON HCL 4 MG/2 ML VIAL IVP PRN ×2 (03:30→16:45)
[2019-12-17] MEDS ORDERED: ACETAMINOPHEN 325 MG TABLET PO PRN (03:30)
[2019-12-17] MEDS ORDERED: LORazepam 2 MG/ML VIAL ONE (09:25)
[2019-12-17] MEDS ORDERED: NOREPINEPHRINE 4 MG/D5%-WATER 250 ML IV ONE (10:12)
[2019-12-17] MEDS: SODIUM CHLORIDE 0.9% 1,000 ML IV SCH ×2 (11:00→20:01)
[2019-12-17] MEDS ORDERED: SODIUM CHLORIDE 0.9% 250 ML IV ONE (11:06)
[2019-12-17] MEDS: PHENYLEPHRINE 200 MG/D5%-WATER 250 ML IV PRN (11:11)
[2019-12-17 12:01] LABS: ABG A-A DIFF O2 485.6 mmHg (10-20.0); ABG BASE EXCESS 11.8 mmol/L (-2.0-3.0); ABG CARBOXYHEMOGLOBIN 0.1 % (0.0-1.5); ABG HCO3 33.9 mmol/L (22.0-26.0); ABG METHEMOGLOBIN 0.3 % (0.0-1.5); ABG OXYGEN CONTENT 16.8 mL/dL (15.0-23.0); ABG OXYGEN SATURATION 99.4 % (95.0-98.0); ABG PCO2 56 mmHg (35-45); ABG PH 7.427 (7.35-7.450); ABG TOTAL HEMOGLOBIN 11.8 G/dL (12.0-18.0); PO2, ARTERIAL BG 168.7 mmHg (75.0-83.0); SOURCE, BLOOD GAS ARTERIAL; TEMPERATURE, FAHRENHEIT, BG 100.2 FAHREN (96.0-98.6)
[2019-12-17 12:02] LABS: O2 DEVICE,BLOOD GAS VENT (ROOM AIR); SITE, BLOOD GAS RT RADIAL
[2019-12-17 12:04] LABS: PEEP,BG 5 cm H2O; VT, ABG 430 ml
[2019-12-17] MEDS: PROPOFOL 1000 MG/ISO-OSM 100 ML IV PRN ×2 (14:22→20:03)
[2019-12-17] MEDS ORDERED: BUPIVACAINE 0.25%/EPI 1:200,000/PF 10 ML VIAL ONE (14:26)
[2019-12-17] MEDS: LevETIRAcetam 500 MG in DEXTROSE 5%-WATER 100 ML IV SCH ×2 (14:26→22:36)
[2019-12-17] MEDS: HYDROCODONE/ACETAMINOPHEN 5-325 MG TABLET PO PRN ×2 (15:20→21:43)
[2019-12-17] MEDS ORDERED: IPRATROPIUM BROMIDE 0.5 MG/2.5 ML NEB SOLUTION NEB PRN (16:45)
[2019-12-17] MEDS ORDERED: MAGNESIUM HYDROXIDE SUSPENSION 30 ML UDCUP PO PRN (16:45)
[2019-12-17] MEDS ORDERED: ZOLPIDEM TARTRATE 5 MG TABLET GT PRN (16:45)
[2019-12-17] MEDS ORDERED: ALBUTEROL SULFATE 2.5 MG/0.5 ML NEB SOLUTION NEB PRN (16:45)
[2019-12-17] MEDS ORDERED: BISACODYL 5 MG EC TABLET GT PRN (16:45)
[2019-12-17] MEDS ORDERED: BISACODYL 10 MG RECTAL RECTAL SUPPOSITORY PR PRN (16:45)
[2019-12-17] MEDS ORDERED: ACETAMINOPHEN 650 MG/20.3 ML SOLUTION UDCUP NG PRN (16:45)
[2019-12-17] MEDS: BENZTROPINE MESYLATE 1 MG TABLET GT SCH (20:03)
[2019-12-17] MEDS: ASCORBIC ACID 500 MG TABLET GT SCH (20:03)
[2019-12-17] MEDS: DOCUSATE SODIUM 100 MG/10 ML LIQUID UDCUP GT SCH (20:03)
[2019-12-17] MEDS: APIXABAN 2.5 MG TABLET GT SCH (20:03)
[2019-12-17] MEDS: CARVEDILOL 3.125 MG TABLET GT SCH (20:04)
[2019-12-17] MEDS ORDERED: LevETIRAcetam 100 MG/ML 5 ML SOLUTION UDCUP GT SCH (21:00)
[2019-12-18] VITALS (7 sets, daily range): BP systolic 102–151; BP diastolic 16–70
[2019-12-18] MEDS ORDERED: AMIODARONE HCL 360 MG in DEXTROSE 5%-WATER 242.8 ML IV ONE (01:00)
[2019-12-18] MEDS ORDERED: AMIODARONE HCL 150 MG in DEXTROSE 5%-WATER 97 ML IV ONE (01:00)
[2019-12-18] MEDS ORDERED: DIGOXIN 250 MCG/ML 2 ML AMP IVP ONE (01:00)
[2019-12-18] MEDS: SODIUM CHLORIDE 0.9% 1,000 ML IV SCH ×3 (04:02→19:21)
[2019-12-18] MEDS: PHENYLEPHRINE 200 MG/D5%-WATER 250 ML IV PRN ×2 (04:03→23:51)
[2019-12-18 05:43] LABS: BASOPHILS % (AUTO) 0.3 % (0.0-2.0); EOSINOPHILS % (AUTO) 0.1 % (1.0-6.0); HEMATOCRIT 35.2 % (36-46); HEMOGLOBIN 11.1 g/dL (12.0-16.0); LYMPHOCYTES # (AUTO) 1.3 K/uL (1.0-4.8); LYMPHOCYTES % (AUTO) 6.5 % (22.0-44.0); MEAN CORPUSCULAR HEMOGLOBIN 29.1 pg (26.0-34.0); MEAN CORPUSCULAR HGB CONC 31.4 G/dL (31.0-37.0); MEAN CORPUSCULAR VOLUME 93 fL (80-100); MONOCYTES # (AUTO) 1.1 K/uL (0.1-1.0); MONOCYTES % (AUTO) 5.6 % (2.0-9.0); NEUTROPHILS # (AUTO) 17.8 K/uL (1.8-7.7); PLATELET COUNT (AUTO) 294 K/uL (150-450); RED CELL DISTRIBUTION WIDTH 15.8 % (11.5-14.5)
[2019-12-18] MEDS: PROPOFOL 1000 MG/ISO-OSM 100 ML IV PRN ×2 (05:44→23:53)
[2019-12-18 05:46] LABS: NEUTROPHILS % (AUTO) 87.5 % (40.0-70.0)
[2019-12-18 06:03] LABS: ALANINE AMINOTRANSFERASE 73 U/L (12-78); ALBUMIN 1.9 g/dL (3.4-5.0); ALKALINE PHOSPHATASE 117 U/L (46-116); ANION GAP 2 mmol/L (8-16); ASPARTATE AMINOTRANSFERASE 61 U/L (15-37); BILIRUBIN,TOTAL 0.2 mg/dL (0.1-1.0); CALCIUM, TOTAL 9.2 mg/dL (8.8-10.5); CARBON DIOXIDE 36 mmol/L (22-29); CHLORIDE 102 mmol/L (98-107); CREATININE 0.72 mg/dL (0.60-1.30); GLUCOSE,RANDOM 123 mg/dL (70-110); SODIUM SERUM 140 mmol/L (136-145); THYROID STIMULATING HORMONE 1.34 uIU/mL (0.36-3.74); UREA NITROGEN, BLOOD 25 mg/dL (7-18)
[2019-12-18 06:04] LABS: GLOMERULAR FILTR. RATE CALC > 60 mL/min (>60)
[2019-12-18] MEDS ORDERED: AMIODARONE HCL 540 MG in DEXTROSE 5%-WATER 239.2 ML IV ONE (07:00)
[2019-12-18] MEDS: DOCUSATE SODIUM 100 MG/10 ML LIQUID UDCUP GT SCH ×2 (08:40→20:39)
[2019-12-18] MEDS: BENZTROPINE MESYLATE 1 MG TABLET GT SCH ×2 (08:40→20:41)
[2019-12-18] MEDS: ASCORBIC ACID 500 MG TABLET GT SCH ×2 (08:41→20:40)
[2019-12-18] MEDS: APIXABAN 2.5 MG TABLET GT SCH ×2 (08:41→20:40)
[2019-12-18] MEDS: LEVOTHYROXINE SODIUM 50 MCG TABLET GT SCH (08:41)
[2019-12-18] MEDS: CARVEDILOL 3.125 MG TABLET GT SCH ×2 (08:41→20:40)
[2019-12-18 10:21] LABS: ABG A-A DIFF O2 187.1 mmHg (10-20.0); ABG BASE EXCESS 10.1 mmol/L (-2.0-3.0); ABG HCO3 31.8 mmol/L (22.0-26.0); ABG METHEMOGLOBIN 0.3 % (0.0-1.5); ABG OXYGEN CONTENT 14.9 mL/dL (15.0-23.0); ABG OXYGEN SATURATION 96.7 % (95.0-98.0); ABG OXYHEMOGLOBIN 96.4 % (94.0-100.0); ABG TOTAL HEMOGLOBIN 10.9 G/dL (12.0-18.0); PO2, ARTERIAL BG 86.9 mmHg (75.0-83.0); SOURCE, BLOOD GAS ARTERIAL; TEMPERATURE, FAHRENHEIT, BG 97.9 FAHREN (96.0-98.6)
[2019-12-18 10:26] LABS: ABG PCO2 74 mmHg (35-45); O2 DEVICE,BLOOD GAS VENTILATOR (ROOM AIR); SITE, BLOOD GAS RT RADIAL
[2019-12-18 10:27] LABS: PEEP,BG 5 cm H2O; VT, ABG 300 ml
[2019-12-18] MEDS: LevETIRAcetam 500 MG in DEXTROSE 5%-WATER 100 ML IV SCH ×2 (11:00→22:12)
[2019-12-18] MEDS ORDERED: LEVO750T68 PO (12:01)
[2019-12-18] MEDS ORDERED: LEVO50 GT (12:01)
[2019-12-18] MEDS: PIPERACILLIN/TAZO 3.375 GM/D5W 50 ML IV SCH ×3 (13:26→23:20)
[2019-12-18] MEDS: AMIODARONE HCL 200 MG TABLET PO SCH ×2 (13:26→20:39)
[2019-12-18] MEDS ORDERED: VANCOMYCIN HCL 1 GM/D5% WATER 200 ML IV ONE (14:00)
[2019-12-18] MEDS: SODIUM HYPOCHLORITE 0.25% [HALF STRENGTH] 473 ML SOLUTION TP SCH (14:46)
[2019-12-18] MEDS: HYDROCODONE/ACETAMINOPHEN 5-325 MG TABLET PO PRN (20:41)
[2019-12-19] VITALS: BP 91/46
[2019-12-19] MEDS ORDERED: AMIODARONE HCL 750 MG in DEXTROSE 5%-WATER 485 ML IV SCH (00:51)
[2019-12-19 04:00] VITALS: BP 106/68
[2019-12-19] MEDS: SODIUM CHLORIDE 0.9% 1,000 ML IV SCH ×2 (04:33→15:45)
[2019-12-19] MEDS: PIPERACILLIN/TAZO 3.375 GM/D5W 50 ML IV SCH ×4 (05:09→23:55)
[2019-12-19 06:02] LABS: BASOPHILS % (AUTO) 0.2 % (0.0-2.0); EOSINOPHILS % (AUTO) 1.1 % (1.0-6.0); HEMATOCRIT 28.1 % (36-46); HEMOGLOBIN 9.3 g/dL (12.0-16.0); LYMPHOCYTES # (AUTO) 0.8 K/uL (1.0-4.8); LYMPHOCYTES % (AUTO) 7.1 % (22.0-44.0); MEAN CORPUSCULAR HEMOGLOBIN 30.1 pg (26.0-34.0); MEAN CORPUSCULAR HGB CONC 33.1 G/dL (31.0-37.0); MEAN CORPUSCULAR VOLUME 91 fL (80-100); MONOCYTES # (AUTO) 0.6 K/uL (0.1-1.0); MONOCYTES % (AUTO) 5.5 % (2.0-9.0); NEUTROPHILS # (AUTO) 9.5 K/uL (1.8-7.7); PLATELET COUNT (AUTO) 238 K/uL (150-450); RED BLOOD CELL COUNT(AUTO) 3.09 MIL/uL (4.00-5.20); RED CELL DISTRIBUTION WIDTH 15.8 % (11.5-14.5)
[2019-12-19 06:03] LABS: NEUTROPHILS % (AUTO) 86.1 % (40.0-70.0)
[2019-12-19 06:08] LABS: ANION GAP 3 mmol/L (8-16); CALCIUM, TOTAL 8.4 mg/dL (8.8-10.5); CARBON DIOXIDE 35 mmol/L (22-29); CHLORIDE 106 mmol/L (98-107); CREATININE 0.63 mg/dL (0.60-1.30); GLUCOSE,RANDOM 111 mg/dL (70-110); POTASSIUM 3.3 mmol/L (3.5-5.1); SODIUM SERUM 144 mmol/L (136-145); UREA NITROGEN, BLOOD 21 mg/dL (7-18)
[2019-12-19 06:11] LABS: GLOMERULAR FILTR. RATE CALC > 60 mL/min (>60)
[2019-12-19] MEDS: VANCOMYCIN HCL 750 MG in DEXTROSE 5%-WATER 250 ML IV SCH ×2 (06:23→18:05)
[2019-12-19 08:00] VITALS: BP 106/49
[2019-12-19] MEDS: DOCUSATE SODIUM 100 MG/10 ML LIQUID UDCUP GT SCH ×2 (08:34→19:54)
[2019-12-19] MEDS: BENZTROPINE MESYLATE 1 MG TABLET GT SCH ×2 (08:34→20:00)
[2019-12-19] MEDS: LEVOTHYROXINE SODIUM 50 MCG TABLET GT SCH (08:34)
[2019-12-19] MEDS: CARVEDILOL 3.125 MG TABLET GT SCH ×2 (08:34→19:54)
[2019-12-19] MEDS: APIXABAN 2.5 MG TABLET GT SCH ×2 (08:34→20:00)
[2019-12-19] MEDS: MULTIVITAMINS WITH MINERALS, THERAPEUTIC 15 ML UDCUP GT SCH (08:34)
[2019-12-19] MEDS: HYDROCODONE/ACETAMINOPHEN 5-325 MG TABLET PO PRN ×3 (08:35→23:56)
[2019-12-19] MEDS: ASCORBIC ACID 500 MG TABLET GT SCH ×2 (08:35→20:00)
[2019-12-19] MEDS: AMIODARONE HCL 200 MG TABLET PO SCH ×2 (08:35→20:00)
[2019-12-19] MEDS: PROPOFOL 1000 MG/ISO-OSM 100 ML IV PRN (08:36)
[2019-12-19] MEDS: SODIUM HYPOCHLORITE 0.25% [HALF STRENGTH] 473 ML SOLUTION TP SCH (08:36)
[2019-12-19] MEDS ORDERED: POTASSIUM CHLORIDE 10% 40 MEQ/30 ML LIQUID UDCUP GT ONE (09:45)
[2019-12-19] MEDS: LevETIRAcetam 500 MG in DEXTROSE 5%-WATER 100 ML IV SCH ×2 (10:30→23:16)
[2019-12-19 11:37] LABS: ABG BASE EXCESS 8.2 mmol/L (-2.0-3.0); ABG CARBOXYHEMOGLOBIN 0.3 % (0.0-1.5); ABG HCO3 31.1 mmol/L (22.0-26.0); ABG METHEMOGLOBIN 0.3 % (0.0-1.5); ABG OXYGEN SATURATION 93.5 % (95.0-98.0); ABG OXYHEMOGLOBIN 92.9 % (94.0-100.0); SOURCE, BLOOD GAS ARTERIAL; TEMPERATURE, FAHRENHEIT, BG 99.3 FAHREN (96.0-98.6)
[2019-12-19 11:42] LABS: SITE, BLOOD GAS RT RADIAL
[2019-12-19 11:43] LABS: ABG OXYGEN CONTENT 12.6 mL/dL (15.0-23.0); ABG PCO2 49 mmHg (35-45); ABG PH 7.436 (7.35-7.450); ABG TOTAL HEMOGLOBIN 9.6 G/dL (12.0-18.0); O2 DEVICE,BLOOD GAS VENTILATOR (ROOM AIR); PO2, ARTERIAL BG 65.1 mmHg (75.0-83.0); VT, ABG 300 ml
[2019-12-19 11:44] LABS: PEEP,BG 5 cm H2O
[2019-12-19 12:00] VITALS: BP 94/47
[2019-12-19 16:00] VITALS: BP 101/37
[2019-12-19 20:00] VITALS: BP 124/63
[2019-12-19] MEDS ORDERED: SODIUM CHLORIDE 0.9% 250 ML IV ONE (23:38)
[2019-12-20] VITALS: BP 121/56
[2019-12-20 01:00] VITALS: BP 115/56
[2019-12-20] MEDS: SODIUM CHLORIDE 0.9% 1,000 ML IV SCH ×3 (01:37→16:34)
[2019-12-20] MEDS: PHENYLEPHRINE 200 MG/D5%-WATER 250 ML IV PRN (01:38)
[2019-12-20 04:00] VITALS: BP 128/55
[2019-12-20] MEDS: PIPERACILLIN/TAZO 3.375 GM/D5W 50 ML IV SCH ×3 (05:23→17:16)
[2019-12-20 06:03] LABS: ANION GAP 4 mmol/L (8-16); CALCIUM, TOTAL 8.1 mg/dL (8.8-10.5); CARBON DIOXIDE 32 mmol/L (22-29); CHLORIDE 111 mmol/L (98-107); CREATININE 0.53 mg/dL (0.60-1.30); GLUCOSE,RANDOM 99 mg/dL (70-110); POTASSIUM 3.8 mmol/L (3.5-5.1); SODIUM SERUM 147 mmol/L (136-145); UREA NITROGEN, BLOOD 17 mg/dL (7-18); VANCOMYCIN,RANDOM 16.5 mcg/mL (25.0-50.0)
[2019-12-20 06:11] LABS: GLOMERULAR FILTR. RATE CALC > 60 mL/min (>60)
[2019-12-20] MEDS: VANCOMYCIN HCL 750 MG in DEXTROSE 5%-WATER 250 ML IV SCH ×2 (06:28→18:14)
[2019-12-20] MEDS: MULTIVITAMINS WITH MINERALS, THERAPEUTIC 15 ML UDCUP GT SCH (07:45)
[2019-12-20] MEDS: AMIODARONE HCL 200 MG TABLET PO SCH ×2 (07:45→22:35)
[2019-12-20] MEDS: ASCORBIC ACID 500 MG TABLET GT SCH ×2 (07:46→22:35)
[2019-12-20] MEDS: APIXABAN 2.5 MG TABLET GT SCH ×2 (07:46→22:35)
[2019-12-20] MEDS: LEVOTHYROXINE SODIUM 50 MCG TABLET GT SCH (07:46)
[2019-12-20] MEDS: CARVEDILOL 3.125 MG TABLET GT SCH ×2 (07:47→22:35)
[2019-12-20] MEDS: BENZTROPINE MESYLATE 1 MG TABLET GT SCH ×2 (07:47→22:35)
[2019-12-20] MEDS: DOCUSATE SODIUM 100 MG/10 ML LIQUID UDCUP GT SCH ×2 (07:50→22:35)
[2019-12-20 08:00] VITALS: BP 143/67
[2019-12-20] MEDS: SODIUM HYPOCHLORITE 0.25% [HALF STRENGTH] 473 ML SOLUTION TP SCH (08:19)
[2019-12-20 09:36] LABS: ABG CARBOXYHEMOGLOBIN 0.3 % (0.0-1.5); ABG METHEMOGLOBIN 0.3 % (0.0-1.5); SOURCE, BLOOD GAS ARTERIAL
[2019-12-20 09:48] LABS: ABG BASE EXCESS 7.2 mmol/L (-2.0-3.0); ABG HCO3 30.1 mmol/L (22.0-26.0); ABG OXYHEMOGLOBIN 93.4 % (94.0-100.0); TEMPERATURE, FAHRENHEIT, BG 99.2 FAHREN (96.0-98.6)
[2019-12-20 09:52] LABS: ABG OXYGEN CONTENT 12.9 mL/dL (15.0-23.0); ABG PCO2 53 mmHg (35-45); ABG TOTAL HEMOGLOBIN 9.8 G/dL (12.0-18.0); PO2, ARTERIAL BG 67.8 mmHg (75.0-83.0); SITE, BLOOD GAS RT RADIAL
[2019-12-20 09:53] LABS: O2 DEVICE,BLOOD GAS VENTILATOR (ROOM AIR); VT, ABG 300 ml
[2019-12-20 09:54] LABS: PEEP,BG 5 cm H2O
[2019-12-20] MEDS: LevETIRAcetam 500 MG in DEXTROSE 5%-WATER 100 ML IV SCH ×2 (10:38→22:36)
[2019-12-20] MEDS: HYDROCODONE/ACETAMINOPHEN 5-325 MG TABLET PO PRN (11:33)
[2019-12-20 12:00] VITALS: BP 118/60
[2019-12-20 16:00] VITALS: BP 105/66
[2019-12-21] MEDS: PIPERACILLIN/TAZO 3.375 GM/D5W 50 ML IV SCH ×5 (02:20→23:22)
[2019-12-21] MEDS ORDERED: SODIUM CHLORIDE 0.9% 250 ML IV ONE (02:34)
[2019-12-21] MEDS: SODIUM CHLORIDE 0.45% 1,000 ML IV SCH ×2 (03:04→15:20)
[2019-12-21] MEDS: VANCOMYCIN HCL 750 MG in DEXTROSE 5%-WATER 250 ML IV SCH ×2 (06:19→18:10)
[2019-12-21 08:00] VITALS: BP 144/74
[2019-12-21] MEDS: DOCUSATE SODIUM 100 MG/10 ML LIQUID UDCUP GT SCH ×2 (08:10→20:40)
[2019-12-21] MEDS: ASCORBIC ACID 500 MG TABLET GT SCH ×2 (09:09→20:43)
[2019-12-21] MEDS: APIXABAN 2.5 MG TABLET GT SCH ×2 (09:09→21:29)
[2019-12-21] MEDS: MULTIVITAMINS WITH MINERALS, THERAPEUTIC 15 ML UDCUP GT SCH (09:09)
[2019-12-21] MEDS: AMIODARONE HCL 200 MG TABLET PO SCH ×2 (09:09→20:43)
[2019-12-21] MEDS: CARVEDILOL 3.125 MG TABLET GT SCH ×2 (09:09→20:43)
[2019-12-21] MEDS: LEVOTHYROXINE SODIUM 50 MCG TABLET GT SCH (09:09)
[2019-12-21] MEDS: BENZTROPINE MESYLATE 1 MG TABLET GT SCH ×2 (09:09→21:29)
[2019-12-21] MEDS: SODIUM HYPOCHLORITE 0.25% [HALF STRENGTH] 473 ML SOLUTION TP SCH (09:10)
[2019-12-21 10:30] LABS: ABG A-A DIFF O2 147.1 mmHg (10-20.0); ABG BASE EXCESS 7.6 mmol/L (-2.0-3.0); ABG CARBOXYHEMOGLOBIN 0.3 % (0.0-1.5); ABG HCO3 30.5 mmol/L (22.0-26.0); ABG METHEMOGLOBIN 0.3 % (0.0-1.5); ABG OXYGEN SATURATION 95.3 % (95.0-98.0); ABG OXYHEMOGLOBIN 94.7 % (94.0-100.0); SOURCE, BLOOD GAS ARTERIAL; TEMPERATURE, FAHRENHEIT, BG 99.4 FAHREN (96.0-98.6)
[2019-12-21 10:35] LABS: SITE, BLOOD GAS RT RADIAL
[2019-12-21 10:36] LABS: ABG PCO2 51 mmHg (35-45); ABG PH 7.416 (7.35-7.450); PO2, ARTERIAL BG 75.7 mmHg (75.0-83.0)
[2019-12-21 10:38] LABS: ABG OXYGEN CONTENT 13.1 mL/dL (15.0-23.0); ABG TOTAL HEMOGLOBIN 9.8 G/dL (12.0-18.0); O2 DEVICE,BLOOD GAS VENTILATOR (ROOM AIR)
[2019-12-21 10:39] LABS: PEEP,BG 5 cm H2O; VT, ABG 300 ml
[2019-12-21] MEDS: LevETIRAcetam 500 MG in DEXTROSE 5%-WATER 100 ML IV SCH ×2 (11:41→22:10)
[2019-12-21 12:00] VITALS: BP 144/69
[2019-12-21 15:41] LABS: ABG A-A DIFF O2 148.5 mmHg (10-20.0); ABG BASE EXCESS 6.1 mmol/L (-2.0-3.0); ABG CARBOXYHEMOGLOBIN 0.1 % (0.0-1.5); ABG HCO3 29.3 mmol/L (22.0-26.0); ABG METHEMOGLOBIN 0.3 % (0.0-1.5); ABG OXYGEN SATURATION 95.8 % (95.0-98.0); ABG OXYHEMOGLOBIN 95.4 % (94.0-100.0); SOURCE, BLOOD GAS ARTERIAL; TEMPERATURE, FAHRENHEIT, BG 99.5 FAHREN (96.0-98.6)
[2019-12-21 15:50] LABS: ABG OXYGEN CONTENT 14.2 mL/dL (15.0-23.0); ABG PCO2 48 mmHg (35-45); ABG PH 7.425 (7.35-7.450); ABG TOTAL HEMOGLOBIN 10.5 G/dL (12.0-18.0); O2 DEVICE,BLOOD GAS VENTILATOR (ROOM AIR); PO2, ARTERIAL BG 77.6 mmHg (75.0-83.0); SITE, BLOOD GAS RT RADIAL; VENT MODE, BG CPAP (ROOM AIR)
[2019-12-21 15:51] LABS: PEEP,BG 0 cm H2O; PRESSURE SUPPORT, BG 8 cm H2O
[2019-12-21 16:15] VITALS: BP 157/79
[2019-12-21 20:00] VITALS: BP 152/86
[2019-12-21] MEDS: HYDROCODONE/ACETAMINOPHEN 5-325 MG TABLET PO PRN (20:44)
[2019-12-21 21:40] VITALS: BP 162/78
[2019-12-22] VITALS (9 sets, daily range): BP systolic 106–148; BP diastolic 57–74
[2019-12-22] MEDS: SODIUM CHLORIDE 0.45% 1,000 ML IV SCH ×2 (03:07→17:09)
[2019-12-22] MEDS: HYDROCODONE/ACETAMINOPHEN 5-325 MG TABLET PO PRN ×2 (05:04→17:10)
[2019-12-22] MEDS: PIPERACILLIN/TAZO 3.375 GM/D5W 50 ML IV SCH ×3 (05:08→17:10)
[2019-12-22 05:17] LABS: ANION GAP 3 mmol/L (8-16); CALCIUM, TOTAL 8.1 mg/dL (8.8-10.5); CARBON DIOXIDE 36 mmol/L (22-29); CHLORIDE 107 mmol/L (98-107); CREATININE 0.56 mg/dL (0.60-1.30); GLUCOSE,RANDOM 124 mg/dL (70-110); POTASSIUM 3.1 mmol/L (3.5-5.1); SODIUM SERUM 146 mmol/L (136-145); UREA NITROGEN, BLOOD 10 mg/dL (7-18)
[2019-12-22 05:25] LABS: GLOMERULAR FILTR. RATE CALC > 60 mL/min (>60)
[2019-12-22] MEDS: VANCOMYCIN HCL 750 MG in DEXTROSE 5%-WATER 250 ML IV SCH ×2 (06:06→20:50)
[2019-12-22] MEDS: APIXABAN 2.5 MG TABLET GT SCH ×2 (08:16→20:50)
[2019-12-22] MEDS: BENZTROPINE MESYLATE 1 MG TABLET GT SCH ×2 (08:16→20:50)
[2019-12-22] MEDS: MULTIVITAMINS WITH MINERALS, THERAPEUTIC 15 ML UDCUP GT SCH (08:16)
[2019-12-22] MEDS: ASCORBIC ACID 500 MG TABLET GT SCH (08:16)
[2019-12-22] MEDS: DOCUSATE SODIUM 100 MG/10 ML LIQUID UDCUP GT SCH ×2 (08:16→20:51)
[2019-12-22] MEDS: AMIODARONE HCL 200 MG TABLET PO SCH ×2 (08:16→20:51)
[2019-12-22] MEDS: LEVOTHYROXINE SODIUM 50 MCG TABLET GT SCH (08:16)
[2019-12-22] MEDS: CARVEDILOL 3.125 MG TABLET GT SCH ×2 (08:16→20:51)
[2019-12-22] MEDS: SODIUM HYPOCHLORITE 0.25% [HALF STRENGTH] 473 ML SOLUTION TP SCH (08:17)
[2019-12-22] MEDS ORDERED: POTASSIUM CHLORIDE 20 MEQ ER TABLET PO PRN (09:00)
[2019-12-22] MEDS: POTASSIUM CHL 10 MEQ/WATER 50 ML IV PRN ×3 (09:18→11:52)
[2019-12-22] MEDS: LevETIRAcetam 500 MG in DEXTROSE 5%-WATER 100 ML IV SCH (10:42)
[2019-12-23] VITALS (7 sets, daily range): BP systolic 110–134; BP diastolic 53–66
[2019-12-23] MEDS: ASCORBIC ACID 500 MG TABLET GT SCH ×3 (00:05→22:34)
[2019-12-23] MEDS: HYDROCODONE/ACETAMINOPHEN 5-325 MG TABLET PO PRN (00:06)
[2019-12-23] MEDS: LevETIRAcetam 500 MG in DEXTROSE 5%-WATER 100 ML IV SCH ×3 (00:06→23:34)
[2019-12-23] MEDS: PIPERACILLIN/TAZO 3.375 GM/D5W 50 ML IV SCH ×4 (01:14→18:11)
[2019-12-23 06:58] LABS: BASOPHILS % (AUTO) 0.1 % (0.0-2.0); EOSINOPHILS % (AUTO) 0.5 % (1.0-6.0); HEMATOCRIT 28.9 % (36-46); HEMOGLOBIN 9.5 g/dL (12.0-16.0); LYMPHOCYTES # (AUTO) 0.5 K/uL (1.0-4.8); LYMPHOCYTES % (AUTO) 5.9 % (22.0-44.0); MEAN CORPUSCULAR HEMOGLOBIN 30.2 pg (26.0-34.0); MEAN CORPUSCULAR HGB CONC 32.9 G/dL (31.0-37.0); MEAN CORPUSCULAR VOLUME 92 fL (80-100); MONOCYTES # (AUTO) 0.3 K/uL (0.1-1.0); MONOCYTES % (AUTO) 3.8 % (2.0-9.0); NEUTROPHILS # (AUTO) 7.7 K/uL (1.8-7.7); PLATELET COUNT (AUTO) 286 K/uL (150-450); RED BLOOD CELL COUNT(AUTO) 3.15 MIL/uL (4.00-5.20); RED CELL DISTRIBUTION WIDTH 15.8 % (11.5-14.5)
[2019-12-23 07:02] LABS: NEUTROPHILS % (AUTO) 89.7 % (40.0-70.0)
[2019-12-23 07:03] LABS: ALANINE AMINOTRANSFERASE 44 U/L (12-78); ALBUMIN 1.7 g/dL (3.4-5.0); ALKALINE PHOSPHATASE 76 U/L (46-116); ANION GAP 0 mmol/L (8-16); ASPARTATE AMINOTRANSFERASE 26 U/L (15-37); BILIRUBIN,TOTAL 0.3 mg/dL (0.1-1.0); CALCIUM, TOTAL 8.3 mg/dL (8.8-10.5); CARBON DIOXIDE 39 mmol/L (22-29); CHLORIDE 106 mmol/L (98-107); CREATININE 0.52 mg/dL (0.60-1.30); GLUCOSE,RANDOM 140 mg/dL (70-110); POTASSIUM 3.6 mmol/L (3.5-5.1); SODIUM SERUM 145 mmol/L (136-145); TOTAL PROTEIN, SERUM 5.5 g/dL (6.4-8.2); UREA NITROGEN, BLOOD 15 mg/dL (7-18); VANCOMYCIN,RANDOM 18.7 mcg/mL (25.0-50.0)
[2019-12-23 07:05] LABS: GLOMERULAR FILTR. RATE CALC > 60 mL/min (>60)
[2019-12-23] MEDS: VANCOMYCIN HCL 750 MG in DEXTROSE 5%-WATER 250 ML IV SCH ×2 (08:48→21:50)
[2019-12-23] MEDS: DOCUSATE SODIUM 100 MG/10 ML LIQUID UDCUP GT SCH ×2 (09:00→22:34)
[2019-12-23] MEDS: APIXABAN 2.5 MG TABLET GT SCH ×2 (09:21→22:34)
[2019-12-23] MEDS: LEVOTHYROXINE SODIUM 50 MCG TABLET GT SCH (09:21)
[2019-12-23] MEDS: AMIODARONE HCL 200 MG TABLET PO SCH ×2 (09:21→22:34)
[2019-12-23] MEDS: MULTIVITAMINS WITH MINERALS, THERAPEUTIC 15 ML UDCUP GT SCH (09:21)
[2019-12-23] MEDS: SODIUM CHLORIDE 0.45% 1,000 ML IV SCH (09:21)
[2019-12-23] MEDS: BENZTROPINE MESYLATE 1 MG TABLET GT SCH ×2 (09:22→22:34)
[2019-12-23] MEDS: CARVEDILOL 3.125 MG TABLET GT SCH ×2 (09:22→22:34)
[2019-12-23] MEDS: SODIUM HYPOCHLORITE 0.25% [HALF STRENGTH] 473 ML SOLUTION TP SCH (09:22)
[2019-12-24] MEDS: PIPERACILLIN/TAZO 3.375 GM/D5W 50 ML IV SCH ×4 (01:00→18:19)
[2019-12-24 04:10] VITALS: BP 106/69
[2019-12-24 06:57] LABS: BASOPHILS % (AUTO) 0.2 % (0.0-2.0); EOSINOPHILS % (AUTO) 1.6 % (1.0-6.0); HEMATOCRIT 29.4 % (36-46); HEMOGLOBIN 9.7 g/dL (12.0-16.0); LYMPHOCYTES # (AUTO) 0.7 K/uL (1.0-4.8); LYMPHOCYTES % (AUTO) 6.8 % (22.0-44.0); MEAN CORPUSCULAR HEMOGLOBIN 30.6 pg (26.0-34.0); MEAN CORPUSCULAR VOLUME 93 fL (80-100); MONOCYTES # (AUTO) 0.5 K/uL (0.1-1.0); MONOCYTES % (AUTO) 5.4 % (2.0-9.0); NEUTROPHILS # (AUTO) 8.3 K/uL (1.8-7.7); PLATELET COUNT (AUTO) 312 K/uL (150-450); RED BLOOD CELL COUNT(AUTO) 3.18 MIL/uL (4.00-5.20); RED CELL DISTRIBUTION WIDTH 15.9 % (11.5-14.5)
[2019-12-24 07:36] LABS: ALANINE AMINOTRANSFERASE 60 U/L (12-78); ALBUMIN 1.6 g/dL (3.4-5.0); ALKALINE PHOSPHATASE 80 U/L (46-116); ANION GAP 1 mmol/L (8-16); ASPARTATE AMINOTRANSFERASE 36 U/L (15-37); BILIRUBIN,TOTAL 0.2 mg/dL (0.1-1.0); CARBON DIOXIDE 37 mmol/L (22-29); CHLORIDE 105 mmol/L (98-107); CREATININE 0.53 mg/dL (0.60-1.30); GLUCOSE,RANDOM 112 mg/dL (70-110); POTASSIUM 3.9 mmol/L (3.5-5.1); SODIUM SERUM 143 mmol/L (136-145); TOTAL PROTEIN, SERUM 5.4 g/dL (6.4-8.2); UREA NITROGEN, BLOOD 16 mg/dL (7-18)
[2019-12-24 07:37] LABS: GLOMERULAR FILTR. RATE CALC > 60 mL/min (>60)
[2019-12-24] MEDS: VANCOMYCIN HCL 750 MG in DEXTROSE 5%-WATER 250 ML IV SCH ×2 (07:42→18:20)
[2019-12-24] MEDS: MULTIVITAMINS WITH MINERALS, THERAPEUTIC 15 ML UDCUP GT SCH (08:07)
[2019-12-24] MEDS: ASCORBIC ACID 500 MG TABLET GT SCH ×2 (08:08→21:02)
[2019-12-24] MEDS: DOCUSATE SODIUM 100 MG/10 ML LIQUID UDCUP GT SCH ×2 (08:08→22:27)
[2019-12-24] MEDS: LEVOTHYROXINE SODIUM 50 MCG TABLET GT SCH (08:08)
[2019-12-24] MEDS: BENZTROPINE MESYLATE 1 MG TABLET GT SCH ×2 (08:08→22:27)
[2019-12-24] MEDS: AMIODARONE HCL 200 MG TABLET PO SCH ×2 (08:08→21:02)
[2019-12-24] MEDS: APIXABAN 2.5 MG TABLET GT SCH ×2 (08:08→22:27)
[2019-12-24 08:10] VITALS: BP 125/65
[2019-12-24] MEDS: SODIUM HYPOCHLORITE 0.25% [HALF STRENGTH] 473 ML SOLUTION TP SCH (08:20)
[2019-12-24] MEDS: CARVEDILOL 3.125 MG TABLET GT SCH ×2 (09:00→21:25)
[2019-12-24 11:22] VITALS: BP 142/79
[2019-12-24] MEDS: LevETIRAcetam 500 MG in DEXTROSE 5%-WATER 100 ML IV SCH ×2 (11:57→22:28)
[2019-12-24] MEDS ORDERED: ETOMIDATE 2 MG/ML 10 ML VIAL IVP ONE (12:00)
[2019-12-24 14:30] VITALS: BP 146/25
[2019-12-24 15:46] LABS: ABG A-A DIFF O2 554.2 mmHg (10-20.0); ABG BASE EXCESS 11.7 mmol/L (-2.0-3.0); ABG CARBOXYHEMOGLOBIN 0.3 % (0.0-1.5); ABG METHEMOGLOBIN 0.3 % (0.0-1.5); ABG OXYGEN CONTENT 14.4 mL/dL (15.0-23.0); ABG OXYGEN SATURATION 98.5 % (95.0-98.0); ABG OXYHEMOGLOBIN 97.9 % (94.0-100.0); ABG PCO2 52 mmHg (35-45); ABG PH 7.454 (7.35-7.450); ABG TOTAL HEMOGLOBIN 10.3 G/dL (12.0-18.0); PO2, ARTERIAL BG 108.6 mmHg (75.0-83.0); SOURCE, BLOOD GAS ARTERIAL; TEMPERATURE, FAHRENHEIT, BG 97.5 FAHREN (96.0-98.6)
[2019-12-24 16:00] VITALS: BP 131/57
[2019-12-24 17:02] LABS: O2 DEVICE,BLOOD GAS VENTILATOR (ROOM AIR); PEEP,BG 5 cm H2O; SITE, BLOOD GAS LFT RADIAL; SPONTANEOUS VT, BG 485 ml; VT, ABG 500 ml
[2019-12-24] MEDS ORDERED: SODIUM CHLORIDE 0.9% 500 ML IV ONE (18:33)
[2019-12-24 20:00] VITALS: BP 130/65
[2019-12-24 21:36] LABS: GLUCOMETER DEV NAME(LOC) 5S.2A; GLUCOSE,POINT OF CARE 151 MG/DL (70-110)
[2019-12-25] VITALS: BP 130/61
[2019-12-25] MEDS: PIPERACILLIN/TAZO 3.375 GM/D5W 50 ML IV SCH ×5 (00:02→23:23)
[2019-12-25 04:00] VITALS: BP 135/57
[2019-12-25 05:44] LABS: BASOPHILS % (AUTO) 0.4 % (0.0-2.0); EOSINOPHILS % (AUTO) 0.8 % (1.0-6.0); HEMATOCRIT 27.8 % (36-46); HEMOGLOBIN 9.4 g/dL (12.0-16.0); LYMPHOCYTES # (AUTO) 0.9 K/uL (1.0-4.8); LYMPHOCYTES % (AUTO) 10.4 % (22.0-44.0); MEAN CORPUSCULAR HEMOGLOBIN 30.6 pg (26.0-34.0); MEAN CORPUSCULAR HGB CONC 33.8 G/dL (31.0-37.0); MEAN CORPUSCULAR VOLUME 90 fL (80-100); MONOCYTES # (AUTO) 0.7 K/uL (0.1-1.0); MONOCYTES % (AUTO) 7.2 % (2.0-9.0); NEUTROPHILS # (AUTO) 7.4 K/uL (1.8-7.7); NEUTROPHILS % (AUTO) 81.2 % (40.0-70.0); PLATELET COUNT (AUTO) 310 K/uL (150-450); RED BLOOD CELL COUNT(AUTO) 3.07 MIL/uL (4.00-5.20); RED CELL DISTRIBUTION WIDTH 15.9 % (11.5-14.5)
[2019-12-25 05:56] LABS: ALANINE AMINOTRANSFERASE 59 U/L (12-78); ALBUMIN 1.6 g/dL (3.4-5.0); ALKALINE PHOSPHATASE 78 U/L (46-116); ANION GAP 2 mmol/L (8-16); ASPARTATE AMINOTRANSFERASE 29 U/L (15-37); BILIRUBIN,TOTAL 0.5 mg/dL (0.1-1.0); CALCIUM, TOTAL 8.6 mg/dL (8.8-10.5); CARBON DIOXIDE 39 mmol/L (22-29); CHLORIDE 105 mmol/L (98-107); GLUCOSE,RANDOM 87 mg/dL (70-110); POTASSIUM 3.2 mmol/L (3.5-5.1); SODIUM SERUM 146 mmol/L (136-145); UREA NITROGEN, BLOOD 18 mg/dL (7-18)
[2019-12-25 05:58] LABS: GLOMERULAR FILTR. RATE CALC > 60 mL/min (>60)
[2019-12-25] MEDS: VANCOMYCIN HCL 750 MG in DEXTROSE 5%-WATER 250 ML IV SCH ×2 (06:14→19:03)
[2019-12-25 08:00] VITALS: BP 139/64
[2019-12-25] MEDS: BENZTROPINE MESYLATE 1 MG TABLET GT SCH ×2 (08:57→20:20)
[2019-12-25] MEDS: MULTIVITAMINS WITH MINERALS, THERAPEUTIC 15 ML UDCUP GT SCH (08:57)
[2019-12-25] MEDS: APIXABAN 2.5 MG TABLET GT SCH ×2 (08:58→20:20)
[2019-12-25] MEDS: ASCORBIC ACID 500 MG TABLET GT SCH ×2 (08:58→20:20)
[2019-12-25] MEDS: CARVEDILOL 3.125 MG TABLET GT SCH ×2 (08:58→20:20)
[2019-12-25] MEDS: AMIODARONE HCL 200 MG TABLET PO SCH ×2 (08:59→20:21)
[2019-12-25] MEDS: DOCUSATE SODIUM 100 MG/10 ML LIQUID UDCUP GT SCH ×2 (09:00→19:40)
[2019-12-25] MEDS: LEVOTHYROXINE SODIUM 50 MCG TABLET GT SCH (09:02)
[2019-12-25] MEDS: SODIUM HYPOCHLORITE 0.25% [HALF STRENGTH] 473 ML SOLUTION TP SCH (09:51)
[2019-12-25] MEDS: LevETIRAcetam 500 MG in DEXTROSE 5%-WATER 100 ML IV SCH ×2 (11:48→22:28)
[2019-12-25 12:00] VITALS: BP 134/42
[2019-12-25] MEDS: POTASSIUM CHL 10 MEQ/WATER 50 ML IV PRN ×3 (12:23→14:57)
[2019-12-25 16:00] VITALS: BP 158/77
[2019-12-25] MEDS ORDERED: 0.9% SODIUM CHLORIDE 10 ML SYRINGE IVP ONE (16:03)
[2019-12-25] MEDS ORDERED: ATROPINE SULFATE 0.1 MG/ML 10 ML SYRINGE IVP ONE (16:03)
[2019-12-25 20:00] VITALS: BP 146/68
[2019-12-25] MEDS: HYDROCODONE/ACETAMINOPHEN 5-325 MG TABLET PO PRN (20:27)
[2019-12-26] VITALS (7 sets, daily range): BP systolic 113–156; BP diastolic 57–66
[2019-12-26] MEDS ORDERED: SODIUM CHLORIDE 0.9% 250 ML IV ONE (00:46)
[2019-12-26] MEDS: PIPERACILLIN/TAZO 3.375 GM/D5W 50 ML IV SCH ×4 (05:06→23:47)
[2019-12-26 05:31] LABS: BASOPHILS % (AUTO) 0.6 % (0.0-2.0); EOSINOPHILS % (AUTO) 5.1 % (1.0-6.0); HEMATOCRIT 28.2 % (36-46); HEMOGLOBIN 9.4 g/dL (12.0-16.0); LYMPHOCYTES # (AUTO) 0.9 K/uL (1.0-4.8); LYMPHOCYTES % (AUTO) 12.3 % (22.0-44.0); MEAN CORPUSCULAR HEMOGLOBIN 29.6 pg (26.0-34.0); MEAN CORPUSCULAR HGB CONC 33.1 G/dL (31.0-37.0); MEAN CORPUSCULAR VOLUME 89 fL (80-100); MONOCYTES # (AUTO) 0.6 K/uL (0.1-1.0); MONOCYTES % (AUTO) 8.2 % (2.0-9.0); NEUTROPHILS # (AUTO) 5.6 K/uL (1.8-7.7); NEUTROPHILS % (AUTO) 73.8 % (40.0-70.0); PLATELET COUNT (AUTO) 361 K/uL (150-450); RED BLOOD CELL COUNT(AUTO) 3.16 MIL/uL (4.00-5.20); RED CELL DISTRIBUTION WIDTH 16.5 % (11.5-14.5)
[2019-12-26 05:51] LABS: ALANINE AMINOTRANSFERASE 54 U/L (12-78); ALBUMIN 1.7 g/dL (3.4-5.0); ALKALINE PHOSPHATASE 82 U/L (46-116); ANION GAP -2 mmol/L (8-16); ASPARTATE AMINOTRANSFERASE 24 U/L (15-37); BILIRUBIN,TOTAL 0.3 mg/dL (0.1-1.0); CALCIUM, TOTAL 8.8 mg/dL (8.8-10.5); CARBON DIOXIDE 39 mmol/L (22-29); CHLORIDE 103 mmol/L (98-107); CREATININE 0.62 mg/dL (0.60-1.30); GLUCOSE,RANDOM 98 mg/dL (70-110); POTASSIUM 3.6 mmol/L (3.5-5.1); SODIUM SERUM 140 mmol/L (136-145); TOTAL PROTEIN, SERUM 5.4 g/dL (6.4-8.2); UREA NITROGEN, BLOOD 15 mg/dL (7-18)
[2019-12-26 05:52] LABS: GLOMERULAR FILTR. RATE CALC > 60 mL/min (>60)
[2019-12-26] MEDS: VANCOMYCIN HCL 750 MG in DEXTROSE 5%-WATER 250 ML IV SCH (06:22)
[2019-12-26] MEDS: POTASSIUM CHL 10 MEQ/WATER 50 ML IV PRN ×3 (07:54→10:44)
[2019-12-26] MEDS: APIXABAN 2.5 MG TABLET GT SCH ×2 (08:46→20:25)
[2019-12-26] MEDS: AMIODARONE HCL 200 MG TABLET PO SCH ×2 (08:46→20:25)
[2019-12-26] MEDS: HYDROCODONE/ACETAMINOPHEN 5-325 MG TABLET PO PRN ×2 (08:46→17:21)
[2019-12-26] MEDS: MULTIVITAMINS WITH MINERALS, THERAPEUTIC 15 ML UDCUP GT SCH (08:46)
[2019-12-26] MEDS: CARVEDILOL 3.125 MG TABLET GT SCH ×2 (08:46→20:24)
[2019-12-26] MEDS: SODIUM HYPOCHLORITE 0.25% [HALF STRENGTH] 473 ML SOLUTION TP SCH (08:47)
[2019-12-26] MEDS: LEVOTHYROXINE SODIUM 50 MCG TABLET GT SCH (08:47)
[2019-12-26] MEDS: ASCORBIC ACID 500 MG TABLET GT SCH ×2 (08:47→20:24)
[2019-12-26] MEDS: BENZTROPINE MESYLATE 1 MG TABLET GT SCH ×2 (08:49→20:24)
[2019-12-26] MEDS: DOCUSATE SODIUM 100 MG/10 ML LIQUID UDCUP GT SCH ×2 (08:49→20:25)
[2019-12-26] MEDS: LevETIRAcetam 500 MG in DEXTROSE 5%-WATER 100 ML IV SCH ×2 (11:01→23:11)
[2019-12-26] MEDS ORDERED: VANCOMYCIN HCL 1 GM/D5% WATER 200 ML IV PRN (12:00)
[2019-12-26] MEDS: LORazepam 2 MG/ML VIAL IVP PRN (14:17)
[2019-12-27] VITALS (7 sets, daily range): BP systolic 119–151; BP diastolic 58–74
[2019-12-27] MEDS: PIPERACILLIN/TAZO 3.375 GM/D5W 50 ML IV SCH ×3 (05:39→17:21)
[2019-12-27 06:01] LABS: BASOPHILS % (AUTO) 0.6 % (0.0-2.0); EOSINOPHILS % (AUTO) 5.6 % (1.0-6.0); HEMATOCRIT 27.7 % (36-46); LYMPHOCYTES % (AUTO) 13.3 % (22.0-44.0); MEAN CORPUSCULAR HEMOGLOBIN 29.3 pg (26.0-34.0); MEAN CORPUSCULAR HGB CONC 32.5 G/dL (31.0-37.0); MEAN CORPUSCULAR VOLUME 90 fL (80-100); MONOCYTES # (AUTO) 0.5 K/uL (0.1-1.0); MONOCYTES % (AUTO) 6.9 % (2.0-9.0); NEUTROPHILS # (AUTO) 5.7 K/uL (1.8-7.7); NEUTROPHILS % (AUTO) 73.6 % (40.0-70.0); PLATELET COUNT (AUTO) 376 K/uL (150-450); RED BLOOD CELL COUNT(AUTO) 3.08 MIL/uL (4.00-5.20); RED CELL DISTRIBUTION WIDTH 16.6 % (11.5-14.5)
[2019-12-27 06:04] LABS: ALANINE AMINOTRANSFERASE 38 U/L (12-78); ALBUMIN 1.7 g/dL (3.4-5.0); ALKALINE PHOSPHATASE 75 U/L (46-116); ANION GAP 0 mmol/L (8-16); ASPARTATE AMINOTRANSFERASE 16 U/L (15-37); BILIRUBIN,TOTAL 0.3 mg/dL (0.1-1.0); CALCIUM, TOTAL 8.7 mg/dL (8.8-10.5); CARBON DIOXIDE 35 mmol/L (22-29); CHLORIDE 105 mmol/L (98-107); CREATININE 0.72 mg/dL (0.60-1.30); GLUCOSE,RANDOM 91 mg/dL (70-110); POTASSIUM 3.7 mmol/L (3.5-5.1); SODIUM SERUM 140 mmol/L (136-145); TOTAL PROTEIN, SERUM 5.3 g/dL (6.4-8.2); UREA NITROGEN, BLOOD 17 mg/dL (7-18); VANCOMYCIN,RANDOM 19.7 mcg/mL (25.0-50.0)
[2019-12-27 06:06] LABS: GLOMERULAR FILTR. RATE CALC > 60 mL/min (>60)
[2019-12-27] MEDS: VANCOMYCIN HCL 1 GM/D5% WATER 200 ML IV SCH (08:15)
[2019-12-27] MEDS: MULTIVITAMINS WITH MINERALS, THERAPEUTIC 15 ML UDCUP GT SCH (08:15)
[2019-12-27] MEDS: ASCORBIC ACID 500 MG TABLET GT SCH ×2 (08:15→20:56)
[2019-12-27] MEDS: CARVEDILOL 3.125 MG TABLET GT SCH ×2 (08:16→20:56)
[2019-12-27] MEDS: DOCUSATE SODIUM 100 MG/10 ML LIQUID UDCUP GT SCH ×2 (08:16→20:56)
[2019-12-27] MEDS: LEVOTHYROXINE SODIUM 50 MCG TABLET GT SCH (08:16)
[2019-12-27] MEDS: APIXABAN 2.5 MG TABLET GT SCH ×2 (08:16→20:56)
[2019-12-27] MEDS: BENZTROPINE MESYLATE 1 MG TABLET GT SCH ×2 (08:16→20:56)
[2019-12-27] MEDS: AMIODARONE HCL 200 MG TABLET PO SCH ×2 (08:18→20:56)
[2019-12-27] MEDS: SODIUM HYPOCHLORITE 0.25% [HALF STRENGTH] 473 ML SOLUTION TP SCH (08:18)
[2019-12-27] MEDS: LevETIRAcetam 500 MG in DEXTROSE 5%-WATER 100 ML IV SCH ×2 (11:10→22:43)
[2019-12-27] MEDS: HYDROCODONE/ACETAMINOPHEN 5-325 MG TABLET PO PRN ×2 (12:17→19:38)
[2019-12-27] MEDS: DEXTRAN 70 0.1%/HYPROMELL 0.3% 0.9 ML OPHTHALMIC SOLUTION [PF] OS SCH (20:56)
[2019-12-28] VITALS (8 sets, daily range): BP systolic 116–158; BP diastolic 49–74
[2019-12-28] MEDS: PIPERACILLIN/TAZO 3.375 GM/D5W 50 ML IV SCH ×5 (00:10→23:32)
[2019-12-28] MEDS ORDERED: SODIUM CHLORIDE 0.9% 250 ML IV ONE (01:49)
[2019-12-28] MEDS: HYDROCODONE/ACETAMINOPHEN 5-325 MG TABLET PO PRN ×3 (03:39→20:12)
[2019-12-28 05:21] LABS: EOSINOPHILS % (AUTO) 5.9 % (1.0-6.0); HEMATOCRIT 28.1 % (36-46); HEMOGLOBIN 9.3 g/dL (12.0-16.0); MEAN CORPUSCULAR HEMOGLOBIN 29.7 pg (26.0-34.0); MEAN CORPUSCULAR HGB CONC 32.9 G/dL (31.0-37.0); MEAN CORPUSCULAR VOLUME 90 fL (80-100); MONOCYTES # (AUTO) 0.5 K/uL (0.1-1.0); MONOCYTES % (AUTO) 6.1 % (2.0-9.0); NEUTROPHILS # (AUTO) 6.4 K/uL (1.8-7.7); PLATELET COUNT (AUTO) 392 K/uL (150-450); RED BLOOD CELL COUNT(AUTO) 3.12 MIL/uL (4.00-5.20)
[2019-12-28 05:32] LABS: ALANINE AMINOTRANSFERASE 34 U/L (12-78); ALBUMIN 1.8 g/dL (3.4-5.0); ALKALINE PHOSPHATASE 74 U/L (46-116); ANION GAP 3 mmol/L (8-16); ASPARTATE AMINOTRANSFERASE 17 U/L (15-37); BILIRUBIN,TOTAL 0.3 mg/dL (0.1-1.0); CALCIUM, TOTAL 8.7 mg/dL (8.8-10.5); CARBON DIOXIDE 33 mmol/L (22-29); CHLORIDE 104 mmol/L (98-107); CREATININE 0.67 mg/dL (0.60-1.30); GLUCOSE,RANDOM 92 mg/dL (70-110); PHOSPHORUS 4.4 mg/dL (2.5-4.9); POTASSIUM 3.8 mmol/L (3.5-5.1); SODIUM SERUM 140 mmol/L (136-145); TOTAL PROTEIN, SERUM 5.7 g/dL (6.4-8.2); UREA NITROGEN, BLOOD 15 mg/dL (7-18)
[2019-12-28 05:47] LABS: GLOMERULAR FILTR. RATE CALC > 60 mL/min (>60)
[2019-12-28] MEDS: VANCOMYCIN HCL 1 GM/D5% WATER 200 ML IV SCH (08:38)
[2019-12-28] MEDS: APIXABAN 2.5 MG TABLET GT SCH ×2 (08:39→20:12)
[2019-12-28] MEDS: BENZTROPINE MESYLATE 1 MG TABLET GT SCH ×2 (08:39→20:12)
[2019-12-28] MEDS: MULTIVITAMINS WITH MINERALS, THERAPEUTIC 15 ML UDCUP GT SCH (08:39)
[2019-12-28] MEDS: DEXTRAN 70 0.1%/HYPROMELL 0.3% 0.9 ML OPHTHALMIC SOLUTION [PF] OS SCH ×2 (08:39→20:12)
[2019-12-28] MEDS: LEVOTHYROXINE SODIUM 50 MCG TABLET GT SCH (08:39)
[2019-12-28] MEDS: ASCORBIC ACID 500 MG TABLET GT SCH ×2 (08:39→20:12)
[2019-12-28] MEDS: CARVEDILOL 3.125 MG TABLET GT SCH ×2 (08:39→20:12)
[2019-12-28] MEDS: AMIODARONE HCL 200 MG TABLET PO SCH ×2 (08:39→20:11)
[2019-12-28] MEDS: DOCUSATE SODIUM 100 MG/10 ML LIQUID UDCUP GT SCH ×2 (08:39→20:11)
[2019-12-28] MEDS: SODIUM HYPOCHLORITE 0.25% [HALF STRENGTH] 473 ML SOLUTION TP SCH (08:40)
[2019-12-28 08:50] LABS: ABG A-A DIFF O2 149.4 mmHg (10-20.0); ABG BASE EXCESS 7.5 mmol/L (-2.0-3.0); ABG HCO3 30.7 mmol/L (22.0-26.0); ABG METHEMOGLOBIN 0.3 % (0.0-1.5); ABG OXYGEN SATURATION 96.5 % (95.0-98.0); ABG OXYHEMOGLOBIN 96.2 % (94.0-100.0); ABG PCO2 44 mmHg (35-45); ABG PH 7.468 (7.35-7.450); ABG TOTAL HEMOGLOBIN 9.5 G/dL (12.0-18.0); PO2, ARTERIAL BG 85.1 mmHg (75.0-83.0); SOURCE, BLOOD GAS ARTERIAL; TEMPERATURE, FAHRENHEIT, BG 98.6 FAHREN (96.0-98.6)
[2019-12-28 09:05] LABS: O2 DEVICE,BLOOD GAS VENTILATOR (ROOM AIR); SITE, BLOOD GAS RT RADIAL; VT, ABG 500 ml
[2019-12-28 09:06] LABS: PEEP,BG 5 cm H2O
[2019-12-28] MEDS: LevETIRAcetam 500 MG in DEXTROSE 5%-WATER 100 ML IV SCH ×2 (11:04→22:35)
[2019-12-28] MEDS: LORazepam 2 MG/ML VIAL IVP PRN (17:49)
[2019-12-29] VITALS: BP 117/56
[2019-12-29 04:00] VITALS: BP 123/57
[2019-12-29] MEDS ORDERED: SODIUM CHLORIDE 0.9% 250 ML IV ONE (04:36)
[2019-12-29] MEDS: PIPERACILLIN/TAZO 3.375 GM/D5W 50 ML IV SCH ×4 (05:11→23:22)
[2019-12-29 05:12] LABS: BASOPHILS % (AUTO) 0.6 % (0.0-2.0); EOSINOPHILS % (AUTO) 5.2 % (1.0-6.0); HEMATOCRIT 26.2 % (36-46); HEMOGLOBIN 8.7 g/dL (12.0-16.0); LYMPHOCYTES # (AUTO) 1.1 K/uL (1.0-4.8); LYMPHOCYTES % (AUTO) 14.4 % (22.0-44.0); MEAN CORPUSCULAR HEMOGLOBIN 29.9 pg (26.0-34.0); MEAN CORPUSCULAR HGB CONC 33.2 G/dL (31.0-37.0); MEAN CORPUSCULAR VOLUME 90 fL (80-100); MONOCYTES # (AUTO) 0.5 K/uL (0.1-1.0); MONOCYTES % (AUTO) 6.5 % (2.0-9.0); NEUTROPHILS # (AUTO) 5.6 K/uL (1.8-7.7); NEUTROPHILS % (AUTO) 73.3 % (40.0-70.0); PLATELET COUNT (AUTO) 392 K/uL (150-450); RED BLOOD CELL COUNT(AUTO) 2.91 MIL/uL (4.00-5.20); RED CELL DISTRIBUTION WIDTH 17.2 % (11.5-14.5)
[2019-12-29 05:29] LABS: ALANINE AMINOTRANSFERASE 29 U/L (12-78); ALBUMIN 1.8 g/dL (3.4-5.0); ALKALINE PHOSPHATASE 66 U/L (46-116); ANION GAP 3 mmol/L (8-16); ASPARTATE AMINOTRANSFERASE 10 U/L (15-37); BILIRUBIN,TOTAL 0.3 mg/dL (0.1-1.0); CALCIUM, TOTAL 8.7 mg/dL (8.8-10.5); CARBON DIOXIDE 33 mmol/L (22-29); CHLORIDE 106 mmol/L (98-107); CREATININE 0.68 mg/dL (0.60-1.30); GLUCOSE,RANDOM 94 mg/dL (70-110); POTASSIUM 3.8 mmol/L (3.5-5.1); SODIUM SERUM 142 mmol/L (136-145); TOTAL PROTEIN, SERUM 5.4 g/dL (6.4-8.2); UREA NITROGEN, BLOOD 15 mg/dL (7-18); VANCOMYCIN,RANDOM 19.9 mcg/mL (25.0-50.0)
[2019-12-29 05:30] LABS: GLOMERULAR FILTR. RATE CALC > 60 mL/min (>60)
[2019-12-29 08:00] VITALS: BP 121/54
[2019-12-29] MEDS: DOCUSATE SODIUM 100 MG/10 ML LIQUID UDCUP GT SCH ×2 (08:23→20:34)
[2019-12-29] MEDS: APIXABAN 2.5 MG TABLET GT SCH ×2 (08:24→20:34)
[2019-12-29] MEDS: LEVOTHYROXINE SODIUM 50 MCG TABLET GT SCH (08:24)
[2019-12-29] MEDS: BENZTROPINE MESYLATE 1 MG TABLET GT SCH ×2 (08:24→20:34)
[2019-12-29] MEDS: ASCORBIC ACID 500 MG TABLET GT SCH ×2 (08:24→20:34)
[2019-12-29] MEDS: AMIODARONE HCL 200 MG TABLET PO SCH ×2 (08:24→20:34)
[2019-12-29] MEDS: MULTIVITAMINS WITH MINERALS, THERAPEUTIC 15 ML UDCUP GT SCH (08:24)
[2019-12-29] MEDS: DEXTRAN 70 0.1%/HYPROMELL 0.3% 0.9 ML OPHTHALMIC SOLUTION [PF] OS SCH ×2 (08:24→20:35)
[2019-12-29] MEDS: CARVEDILOL 3.125 MG TABLET GT SCH ×2 (08:24→20:34)
[2019-12-29] MEDS: SODIUM HYPOCHLORITE 0.25% [HALF STRENGTH] 473 ML SOLUTION TP SCH (08:34)
[2019-12-29] MEDS: VANCOMYCIN HCL 1 GM/D5% WATER 200 ML IV SCH (09:20)
[2019-12-29 12:00] VITALS: BP 129/60
[2019-12-29] MEDS: HYDROCODONE/ACETAMINOPHEN 5-325 MG TABLET PO PRN (12:07)
[2019-12-29] MEDS: LORazepam 2 MG/ML VIAL IVP PRN ×2 (12:07)
[2019-12-29] MEDS: LevETIRAcetam 500 MG in DEXTROSE 5%-WATER 100 ML IV SCH ×2 (12:08→22:12)
[2019-12-29 16:00] VITALS: BP 118/66
[2019-12-29] MEDS: PROPOFOL 1000 MG/ISO-OSM 100 ML IV PRN (16:32)
[2019-12-29] MEDS: FentaNYL CITRATE PF 500 MCG in DEXTROSE 5%-WATER 90 ML IV PRN (19:45)
[2019-12-29 20:00] VITALS: BP 128/64
[2019-12-29] MEDS ORDERED: VECURONIUM BROMIDE 10 MG/VIAL ONE (23:57)
[2019-12-30] VITALS: BP 128/66
[2019-12-30] MEDS: PROPOFOL 1000 MG/ISO-OSM 100 ML IV PRN (01:06)
[2019-12-30] MEDS ORDERED: SODIUM CHLORIDE 0.9% 1,000 ML ONE (01:10)
[2019-12-30 04:00] VITALS: BP 122/64
[2019-12-30] MEDS: FentaNYL CITRATE PF 500 MCG in DEXTROSE 5%-WATER 90 ML IV PRN ×2 (04:41→15:02)
[2019-12-30] MEDS: PIPERACILLIN/TAZO 3.375 GM/D5W 50 ML IV SCH ×3 (05:20→18:29)
[2019-12-30 05:21] LABS: BASOPHILS % (AUTO) 0.8 % (0.0-2.0); EOSINOPHILS % (AUTO) 5.7 % (1.0-6.0); HEMATOCRIT 27.2 % (36-46); LYMPHOCYTES # (AUTO) 1.2 K/uL (1.0-4.8); MEAN CORPUSCULAR HEMOGLOBIN 29.8 pg (26.0-34.0); MEAN CORPUSCULAR VOLUME 90 fL (80-100); MONOCYTES # (AUTO) 0.5 K/uL (0.1-1.0); MONOCYTES % (AUTO) 6.2 % (2.0-9.0); NEUTROPHILS # (AUTO) 5.2 K/uL (1.8-7.7); NEUTROPHILS % (AUTO) 71.3 % (40.0-70.0); PLATELET COUNT (AUTO) 411 K/uL (150-450); RED BLOOD CELL COUNT(AUTO) 3.01 MIL/uL (4.00-5.20); RED CELL DISTRIBUTION WIDTH 17.7 % (11.5-14.5)
[2019-12-30 05:34] LABS: ALANINE AMINOTRANSFERASE 26 U/L (12-78); ALBUMIN 1.9 g/dL (3.4-5.0); ALKALINE PHOSPHATASE 71 U/L (46-116); ANION GAP 6 mmol/L (8-16); ASPARTATE AMINOTRANSFERASE 15 U/L (15-37); BILIRUBIN,TOTAL 0.3 mg/dL (0.1-1.0); CALCIUM, TOTAL 8.8 mg/dL (8.8-10.5); CARBON DIOXIDE 32 mmol/L (22-29); CHLORIDE 106 mmol/L (98-107); CREATININE 0.78 mg/dL (0.60-1.30); GLUCOSE,RANDOM 77 mg/dL (70-110); POTASSIUM 3.6 mmol/L (3.5-5.1); SODIUM SERUM 144 mmol/L (136-145); TOTAL PROTEIN, SERUM 5.8 g/dL (6.4-8.2); UREA NITROGEN, BLOOD 15 mg/dL (7-18)
[2019-12-30 05:44] LABS: GLOMERULAR FILTR. RATE CALC > 60 mL/min (>60)
[2019-12-30] MEDS: POTASSIUM CHL 10 MEQ/WATER 50 ML IV PRN ×3 (06:33→10:53)
[2019-12-30 08:00] VITALS: BP 124/75
[2019-12-30 08:23] LABS: ABG BASE EXCESS 2.5 mmol/L (-2.0-3.0); ABG CARBOXYHEMOGLOBIN 0.3 % (0.0-1.5); ABG HCO3 26.7 mmol/L (22.0-26.0); ABG METHEMOGLOBIN 0.3 % (0.0-1.5); ABG OXYGEN CONTENT 12.7 mL/dL (15.0-23.0); ABG OXYGEN SATURATION 96.6 % (95.0-98.0); ABG PCO2 35 mmHg (35-45); ABG PH 7.484 (7.35-7.450); ABG TOTAL HEMOGLOBIN 9.3 G/dL (12.0-18.0); PO2, ARTERIAL BG 85.6 mmHg (75.0-83.0); SOURCE, BLOOD GAS ARTERIAL; TEMPERATURE, FAHRENHEIT, BG 98.6 FAHREN (96.0-98.6)
[2019-12-30 08:25] LABS: O2 DEVICE,BLOOD GAS VENTILATOR (ROOM AIR); SITE, BLOOD GAS RT RADIAL; VT, ABG 500 ml
[2019-12-30 08:26] LABS: PEEP,BG 5 cm H2O
[2019-12-30] MEDS: VANCOMYCIN HCL 1 GM/D5% WATER 200 ML IV SCH (08:37)
[2019-12-30] MEDS: ASCORBIC ACID 500 MG TABLET GT SCH ×2 (08:45→21:44)
[2019-12-30] MEDS: APIXABAN 2.5 MG TABLET GT SCH (08:45)
[2019-12-30] MEDS: DEXTRAN 70 0.1%/HYPROMELL 0.3% 0.9 ML OPHTHALMIC SOLUTION [PF] OS SCH ×2 (08:45→21:44)
[2019-12-30] MEDS: LEVOTHYROXINE SODIUM 50 MCG TABLET GT SCH (08:45)
[2019-12-30] MEDS: DOCUSATE SODIUM 100 MG/10 ML LIQUID UDCUP GT SCH ×2 (08:46→21:00)
[2019-12-30] MEDS: AMIODARONE HCL 200 MG TABLET PO SCH ×2 (08:46→21:44)
[2019-12-30] MEDS: CARVEDILOL 3.125 MG TABLET GT SCH ×2 (08:46→21:00)
[2019-12-30] MEDS: MULTIVITAMINS WITH MINERALS, THERAPEUTIC 15 ML UDCUP GT SCH (08:46)
[2019-12-30] MEDS: BENZTROPINE MESYLATE 1 MG TABLET GT SCH ×2 (08:46→21:44)
[2019-12-30] MEDS: SODIUM HYPOCHLORITE 0.25% [HALF STRENGTH] 473 ML SOLUTION TP SCH (08:46)
[2019-12-30] MEDS ORDERED: VECURONIUM BROMIDE 10 MG/VIAL IVP PRN (09:00)
[2019-12-30 12:00] VITALS: BP 146/70
[2019-12-30] MEDS: LevETIRAcetam 500 MG in DEXTROSE 5%-WATER 100 ML IV SCH ×2 (12:16→23:02)
[2019-12-30 16:00] VITALS: BP 125/64
[2019-12-30 20:00] VITALS: BP 137/62
[2019-12-31] VITALS: BP 150/72
[2019-12-31] MEDS: PIPERACILLIN/TAZO 3.375 GM/D5W 50 ML IV SCH ×4 (00:09→19:01)
[2019-12-31] MEDS: PROPOFOL 1000 MG/ISO-OSM 100 ML IV PRN ×2 (01:11→12:28)
[2019-12-31] MEDS: FentaNYL CITRATE PF 500 MCG in DEXTROSE 5%-WATER 90 ML IV PRN ×3 (01:14→20:34)
[2019-12-31 04:00] VITALS: BP 146/74
[2019-12-31 06:06] LABS: ALANINE AMINOTRANSFERASE 29 U/L (12-78); ALBUMIN 2.3 g/dL (3.4-5.0); ALKALINE PHOSPHATASE 85 U/L (46-116); ANION GAP 10 mmol/L (8-16); ASPARTATE AMINOTRANSFERASE 15 U/L (15-37); BILIRUBIN,TOTAL 0.4 mg/dL (0.1-1.0); CALCIUM, TOTAL 8.9 mg/dL (8.8-10.5); CARBON DIOXIDE 26 mmol/L (22-29); CHLORIDE 106 mmol/L (98-107); CREATININE 0.87 mg/dL (0.60-1.30); GLUCOSE,RANDOM 72 mg/dL (70-110); SODIUM SERUM 142 mmol/L (136-145); TOTAL PROTEIN, SERUM 6.5 g/dL (6.4-8.2); UREA NITROGEN, BLOOD 14 mg/dL (7-18); VANCOMYCIN,RANDOM 24.1 mcg/mL (25.0-50.0)
[2019-12-31 06:42] LABS: GLOMERULAR FILTR. RATE CALC > 60 mL/min (>60)
[2019-12-31 08:00] VITALS: BP 138/63
[2019-12-31] MEDS: VANCOMYCIN HCL 750 MG in DEXTROSE 5%-WATER 250 ML IV SCH (08:14)
[2019-12-31] MEDS: BENZTROPINE MESYLATE 1 MG TABLET GT SCH ×2 (09:00→20:37)
[2019-12-31] MEDS: DOCUSATE SODIUM 100 MG/10 ML LIQUID UDCUP GT SCH ×2 (09:00→20:36)
[2019-12-31] MEDS: AMIODARONE HCL 200 MG TABLET PO SCH ×2 (09:00→20:35)
[2019-12-31] MEDS: ASCORBIC ACID 500 MG TABLET GT SCH ×2 (09:00→20:35)
[2019-12-31] MEDS: CARVEDILOL 3.125 MG TABLET GT SCH ×2 (09:00→20:35)
[2019-12-31] MEDS: LEVOTHYROXINE SODIUM 50 MCG TABLET GT SCH (09:00)
[2019-12-31] MEDS: MULTIVITAMINS WITH MINERALS, THERAPEUTIC 15 ML UDCUP GT SCH (09:00)
[2019-12-31] MEDS: DEXTRAN 70 0.1%/HYPROMELL 0.3% 0.9 ML OPHTHALMIC SOLUTION [PF] OS SCH ×2 (09:05→21:18)
[2019-12-31] MEDS: SODIUM HYPOCHLORITE 0.25% [HALF STRENGTH] 473 ML SOLUTION TP SCH (09:05)
[2019-12-31] MEDS: LevETIRAcetam 500 MG in DEXTROSE 5%-WATER 100 ML IV SCH ×2 (10:23→23:33)
[2019-12-31 11:17] LABS: ABG A-A DIFF O2 166.9 mmHg (10-20.0); ABG BASE EXCESS -0.9 mmol/L (-2.0-3.0); ABG CARBOXYHEMOGLOBIN 0.3 % (0.0-1.5); ABG HCO3 24.2 mmol/L (22.0-26.0); ABG METHEMOGLOBIN 0.3 % (0.0-1.5); ABG OXYGEN CONTENT 13.7 mL/dL (15.0-23.0); ABG OXYGEN SATURATION 96.9 % (95.0-98.0); ABG OXYHEMOGLOBIN 96.3 % (94.0-100.0); ABG PCO2 30 mmHg (35-45); ABG PH 7.493 (7.35-7.450); PO2, ARTERIAL BG 84.5 mmHg (75.0-83.0); SOURCE, BLOOD GAS ARTERIAL; TEMPERATURE, FAHRENHEIT, BG 97.5 FAHREN (96.0-98.6)
[2019-12-31 11:18] LABS: O2 DEVICE,BLOOD GAS VENTILATOR (ROOM AIR); PEEP,BG 5 cm H2O; SITE, BLOOD GAS LFT RADIAL; VT, ABG 500 ml
[2019-12-31 12:00] VITALS: BP 125/59
[2019-12-31 16:00] VITALS: BP 129/51
[2019-12-31] MEDS ORDERED: LIDOCAINE 4% 50 ML SOLUTION TP ONE (17:10)
[2019-12-31] MEDS ORDERED: VECURONIUM BROMIDE 10 MG/VIAL IVP ONE (17:45)
[2019-12-31 20:00] VITALS: BP 115/59
[2020-01-01] VITALS (7 sets, daily range): BP systolic 92–136; BP diastolic 45–68
[2020-01-01] MEDS: PIPERACILLIN/TAZO 3.375 GM/D5W 50 ML IV SCH ×4 (00:24→17:40)
[2020-01-01] MEDS: PROPOFOL 1000 MG/ISO-OSM 100 ML IV PRN ×2 (01:24→09:50)
[2020-01-01] MEDS: FentaNYL CITRATE PF 500 MCG in DEXTROSE 5%-WATER 90 ML IV PRN ×3 (02:05→18:37)
[2020-01-01 05:25] LABS: ANION GAP 10 mmol/L (8-16); CARBON DIOXIDE 25 mmol/L (22-29); CHLORIDE 105 mmol/L (98-107); CREATININE 0.64 mg/dL (0.60-1.30); GLOMERULAR FILTR. RATE CALC > 60 mL/min (>60); GLUCOSE,RANDOM 84 mg/dL (70-110); POTASSIUM 3.6 mmol/L (3.5-5.1); SODIUM SERUM 140 mmol/L (136-145); UREA NITROGEN, BLOOD 14 mg/dL (7-18)
[2020-01-01 07:02] LABS: BASOPHILS % (AUTO) 1.2 % (0.0-2.0); EOSINOPHILS % (AUTO) 5.5 % (1.0-6.0); HEMOGLOBIN 9.5 g/dL (12.0-16.0); LYMPHOCYTES # (AUTO) 1.1 K/uL (1.0-4.8); LYMPHOCYTES % (AUTO) 15.9 % (22.0-44.0); MEAN CORPUSCULAR HEMOGLOBIN 29.9 pg (26.0-34.0); MEAN CORPUSCULAR HGB CONC 32.9 G/dL (31.0-37.0); MEAN CORPUSCULAR VOLUME 91 fL (80-100); MONOCYTES # (AUTO) 0.5 K/uL (0.1-1.0); MONOCYTES % (AUTO) 6.8 % (2.0-9.0); NEUTROPHILS # (AUTO) 4.8 K/uL (1.8-7.7); NEUTROPHILS % (AUTO) 70.6 % (40.0-70.0); PLATELET COUNT (AUTO) 406 K/uL (150-450); RED BLOOD CELL COUNT(AUTO) 3.19 MIL/uL (4.00-5.20); RED CELL DISTRIBUTION WIDTH 17.7 % (11.5-14.5)
[2020-01-01] MEDS: MULTIVITAMINS WITH MINERALS, THERAPEUTIC 15 ML UDCUP GT SCH (07:59)
[2020-01-01] MEDS: AMIODARONE HCL 200 MG TABLET PO SCH ×2 (07:59→20:23)
[2020-01-01] MEDS: LEVOTHYROXINE SODIUM 50 MCG TABLET GT SCH (07:59)
[2020-01-01] MEDS: ASCORBIC ACID 500 MG TABLET GT SCH ×2 (08:00→20:23)
[2020-01-01] MEDS: BENZTROPINE MESYLATE 1 MG TABLET GT SCH ×2 (08:00→20:24)
[2020-01-01] MEDS: DEXTRAN 70 0.1%/HYPROMELL 0.3% 0.9 ML OPHTHALMIC SOLUTION [PF] OS SCH ×2 (08:00→20:24)
[2020-01-01] MEDS: POTASSIUM CHL 10 MEQ/WATER 50 ML IV PRN ×3 (08:01→11:07)
[2020-01-01] MEDS: CARVEDILOL 3.125 MG TABLET GT SCH ×2 (08:02→20:24)
[2020-01-01] MEDS: DOCUSATE SODIUM 100 MG/10 ML LIQUID UDCUP GT SCH ×2 (08:02→20:24)
[2020-01-01] MEDS: SODIUM HYPOCHLORITE 0.25% [HALF STRENGTH] 473 ML SOLUTION TP SCH (08:02)
[2020-01-01] MEDS: VANCOMYCIN HCL 750 MG in DEXTROSE 5%-WATER 250 ML IV SCH (08:02)
[2020-01-01] MEDS ORDERED: SODIUM CHLORIDE 0.9% 250 ML IV ONE (09:28)
[2020-01-01] MEDS: LevETIRAcetam 500 MG in DEXTROSE 5%-WATER 100 ML IV SCH (11:07)
[2020-01-01] MEDS ORDERED: LIDOCAINE 2% 30 ML JELLY TP ONE (17:10)
[2020-01-01] MEDS ORDERED: LIDOCAINE 4% 50 ML SOLUTION TP ONE (17:10)
[2020-01-01] MEDS: HYDROCODONE/ACETAMINOPHEN 5-325 MG TABLET PO PRN (20:23)
[2020-01-02] VITALS (8 sets, daily range): BP systolic 101–130; BP diastolic 50–66
[2020-01-02] MEDS: LevETIRAcetam 500 MG in DEXTROSE 5%-WATER 100 ML IV SCH ×4 (00:35→23:24)
[2020-01-02] MEDS: PIPERACILLIN/TAZO 3.375 GM/D5W 50 ML IV SCH ×4 (00:35→18:04)
[2020-01-02] MEDS: LORazepam 2 MG/ML VIAL IVP PRN (05:45)
[2020-01-02] MEDS: HYDROCODONE/ACETAMINOPHEN 5-325 MG TABLET PO PRN ×2 (05:45→18:04)
[2020-01-02 06:14] LABS: EOSINOPHILS % (AUTO) 8.5 % (1.0-6.0); HEMATOCRIT 28.7 % (36-46); HEMOGLOBIN 9.6 g/dL (12.0-16.0); LYMPHOCYTES # (AUTO) 1.3 K/uL (1.0-4.8); LYMPHOCYTES % (AUTO) 22.7 % (22.0-44.0); MEAN CORPUSCULAR HEMOGLOBIN 30.6 pg (26.0-34.0); MEAN CORPUSCULAR HGB CONC 33.5 G/dL (31.0-37.0); MEAN CORPUSCULAR VOLUME 91 fL (80-100); MONOCYTES # (AUTO) 0.5 K/uL (0.1-1.0); MONOCYTES % (AUTO) 9.6 % (2.0-9.0); NEUTROPHILS # (AUTO) 3.2 K/uL (1.8-7.7); NEUTROPHILS % (AUTO) 58.2 % (40.0-70.0); PLATELET COUNT (AUTO) 341 K/uL (150-450); RED BLOOD CELL COUNT(AUTO) 3.15 MIL/uL (4.00-5.20); RED CELL DISTRIBUTION WIDTH 18.4 % (11.5-14.5)
[2020-01-02 06:29] LABS: ANION GAP 8 mmol/L (8-16); CALCIUM, TOTAL 8.6 mg/dL (8.8-10.5); CARBON DIOXIDE 26 mmol/L (22-29); CHLORIDE 106 mmol/L (98-107); CREATININE 0.77 mg/dL (0.60-1.30); GLUCOSE,RANDOM 91 mg/dL (70-110); POTASSIUM 3.7 mmol/L (3.5-5.1); SODIUM SERUM 140 mmol/L (136-145); UREA NITROGEN, BLOOD 11 mg/dL (7-18); VANCOMYCIN,RANDOM 17.2 mcg/mL (25.0-50.0)
[2020-01-02 06:30] LABS: GLOMERULAR FILTR. RATE CALC > 60 mL/min (>60)
[2020-01-02] MEDS: VANCOMYCIN HCL 750 MG in DEXTROSE 5%-WATER 250 ML IV SCH (08:54)
[2020-01-02] MEDS: DOCUSATE SODIUM 100 MG/10 ML LIQUID UDCUP GT SCH ×2 (09:00→20:52)
[2020-01-02] MEDS: CARVEDILOL 3.125 MG TABLET GT SCH ×2 (09:00→20:47)
[2020-01-02] MEDS: ASCORBIC ACID 500 MG TABLET GT SCH ×2 (09:17→20:51)
[2020-01-02] MEDS: BENZTROPINE MESYLATE 1 MG TABLET GT SCH ×2 (09:17→20:51)
[2020-01-02] MEDS: MULTIVITAMINS WITH MINERALS, THERAPEUTIC 15 ML UDCUP GT SCH (09:17)
[2020-01-02] MEDS: AMIODARONE HCL 200 MG TABLET PO SCH ×2 (09:17→20:54)
[2020-01-02] MEDS: LEVOTHYROXINE SODIUM 50 MCG TABLET GT SCH (09:18)
[2020-01-02] MEDS: SODIUM HYPOCHLORITE 0.25% [HALF STRENGTH] 473 ML SOLUTION TP SCH (10:20)
[2020-01-02] MEDS: DEXTRAN 70 0.1%/HYPROMELL 0.3% 0.9 ML OPHTHALMIC SOLUTION [PF] OS SCH ×2 (10:21→20:51)
[2020-01-02 18:22] LABS: C.DIFF GDH ANTIGEN, Stool Negative (Negative); C.DIFF TOXINS A&B, Stool Negative (Negative)
[2020-01-03] VITALS (10 sets, daily range): BP systolic 115–160; BP diastolic 42–74
[2020-01-03] MEDS: HYDROCODONE/ACETAMINOPHEN 5-325 MG TABLET PO PRN ×3 (00:01→23:01)
[2020-01-03] MEDS: PIPERACILLIN/TAZO 3.375 GM/D5W 50 ML IV SCH ×3 (00:01→11:47)
[2020-01-03] MEDS: LORazepam 2 MG/ML VIAL IVP PRN ×3 (04:33→18:56)
[2020-01-03 05:13] LABS: BASOPHILS % (AUTO) 1.3 % (0.0-2.0); EOSINOPHILS % (AUTO) 6.6 % (1.0-6.0); HEMATOCRIT 30.8 % (36-46); LYMPHOCYTES # (AUTO) 1.2 K/uL (1.0-4.8); LYMPHOCYTES % (AUTO) 19.7 % (22.0-44.0); MEAN CORPUSCULAR HEMOGLOBIN 29.4 pg (26.0-34.0); MEAN CORPUSCULAR HGB CONC 32.4 G/dL (31.0-37.0); MEAN CORPUSCULAR VOLUME 91 fL (80-100); MONOCYTES # (AUTO) 0.5 K/uL (0.1-1.0); MONOCYTES % (AUTO) 9.2 % (2.0-9.0); NEUTROPHILS # (AUTO) 3.8 K/uL (1.8-7.7); NEUTROPHILS % (AUTO) 63.2 % (40.0-70.0); PLATELET COUNT (AUTO) 357 K/uL (150-450); RED CELL DISTRIBUTION WIDTH 18.1 % (11.5-14.5)
[2020-01-03 05:20] LABS: ANION GAP 8 mmol/L (8-16); CALCIUM, TOTAL 8.7 mg/dL (8.8-10.5); CARBON DIOXIDE 26 mmol/L (22-29); CHLORIDE 106 mmol/L (98-107); GLUCOSE,RANDOM 100 mg/dL (70-110); POTASSIUM 3.8 mmol/L (3.5-5.1); SODIUM SERUM 140 mmol/L (136-145); UREA NITROGEN, BLOOD 11 mg/dL (7-18)
[2020-01-03 05:24] LABS: GLOMERULAR FILTR. RATE CALC > 60 mL/min (>60)
[2020-01-03] MEDS: VANCOMYCIN HCL 750 MG in DEXTROSE 5%-WATER 250 ML IV SCH (08:32)
[2020-01-03] MEDS: MULTIVITAMINS WITH MINERALS, THERAPEUTIC 15 ML UDCUP GT SCH (08:32)
[2020-01-03] MEDS: LEVOTHYROXINE SODIUM 50 MCG TABLET GT SCH (08:33)
[2020-01-03] MEDS: BENZTROPINE MESYLATE 1 MG TABLET GT SCH ×2 (08:33→20:45)
[2020-01-03] MEDS: DOCUSATE SODIUM 100 MG/10 ML LIQUID UDCUP GT SCH ×2 (08:33→20:45)
[2020-01-03] MEDS: ASCORBIC ACID 500 MG TABLET GT SCH ×2 (08:33→20:45)
[2020-01-03] MEDS: DEXTRAN 70 0.1%/HYPROMELL 0.3% 0.9 ML OPHTHALMIC SOLUTION [PF] OS SCH ×2 (08:33→20:45)
[2020-01-03] MEDS: SODIUM HYPOCHLORITE 0.25% [HALF STRENGTH] 473 ML SOLUTION TP SCH (09:15)
[2020-01-03] MEDS: LevETIRAcetam 500 MG in DEXTROSE 5%-WATER 100 ML IV SCH ×2 (10:31→22:36)
[2020-01-04] VITALS: BP 145/71
[2020-01-04 04:00] VITALS: BP 149/72
[2020-01-04] MEDS ORDERED: SODIUM CHLORIDE 0.9% 250 ML IV ONE (07:28)
[2020-01-04 08:00] VITALS: BP 132/65
[2020-01-04] MEDS: DOCUSATE SODIUM 100 MG/10 ML LIQUID UDCUP GT SCH (08:55)
[2020-01-04] MEDS: MULTIVITAMINS WITH MINERALS, THERAPEUTIC 15 ML UDCUP GT SCH (09:00)
[2020-01-04] MEDS: ASCORBIC ACID 500 MG TABLET GT SCH (09:00)
[2020-01-04] MEDS ORDERED: APIXABAN 2.5 MG TABLET PO SCH (09:00)
[2020-01-04] MEDS ORDERED: AMIODARONE HCL 200 MG TABLET PO SCH (09:00)
[2020-01-04] MEDS: BENZTROPINE MESYLATE 1 MG TABLET GT SCH (09:01)
[2020-01-04] MEDS: DEXTRAN 70 0.1%/HYPROMELL 0.3% 0.9 ML OPHTHALMIC SOLUTION [PF] OS SCH (09:01)
[2020-01-04] MEDS: LEVOTHYROXINE SODIUM 50 MCG TABLET GT SCH (09:01)
[2020-01-04] MEDS: SODIUM HYPOCHLORITE 0.25% [HALF STRENGTH] 473 ML SOLUTION TP SCH (09:02)
[2020-01-04] MEDS: LevETIRAcetam 500 MG in DEXTROSE 5%-WATER 100 ML IV SCH (10:47)
[2020-01-04 12:00] VITALS: BP 121/66
[2020-01-04 15:56] VITALS: BP 146/67
[2020-01-04] MEDS: HYDROCODONE/ACETAMINOPHEN 5-325 MG TABLET PO PRN (15:56)
[2020-01-04 16:44] VITALS: BP 133/69
== END 2020-01-04 19:10 | DRG 4 ==
LOC: EMS 23:36 → 5S 12-17 03:40 → ICU 12-17 09:15 → 5S 12-22 18:05 → ICU 12-24 14:30
PROVIDERS: ADMIT Hospitalist; ATTEND Hospitalist
PROC: 5A1955Z Respiratory Ventilation, Greater than 96 Consecutive Hours (ICD-10-PCS; principal; 2019-12-17)
PROC: 0BH17EZ Insertion of Endotracheal Airway into Trachea, Via Natural or Artificial Opening (ICD-10-PCS; 2019-12-17)
PROC: B54NZZA Ultrasonography of Left Upper Extremity Veins, Guidance (ICD-10-PCS; 2019-12-17)
PROC: 05HY33Z Insertion of Infusion Device into Upper Vein, Percutaneous Approach (ICD-10-PCS; 2019-12-17)
PROC: 0B113F4 Bypass Trachea to Cutaneous with Tracheostomy Device, Percutaneous Approach (ICD-10-PCS; 2019-12-31)
PROC: 0B9J8ZZ Drainage of Left Lower Lung Lobe, Via Natural or Artificial Opening Endoscopic (ICD-10-PCS; 2019-12-31)
PROC: 0B978ZZ Drainage of Left Main Bronchus, Via Natural or Artificial Opening Endoscopic (ICD-10-PCS; 2019-12-31)
PROC: 0BC18ZZ Extirpation of Matter from Trachea, Via Natural or Artificial Opening Endoscopic (ICD-10-PCS; 2019-12-31)
DX: A41.9 Sepsis, unspecified organism (principal); J96.02 Acute respiratory failure with hypercapnia; R65.21 Severe sepsis with septic shock; J69.0 Pneumonitis due to inhalation of food and vomit; E43 Unspecified severe protein-calorie malnutrition; L89.154 Pressure ulcer of sacral region, stage 4; E87.0 Hyperosmolality and hypernatremia; Z99.11 Dependence on respirator [ventilator] status; Z68.1 Body mass index [BMI] 19.9 or less, adult; F84.0 Autistic disorder; G40.909 Epilepsy, unspecified, not intractable, without status epilepticus; I48.0 Paroxysmal atrial fibrillation; D64.9 Anemia, unspecified; G80.9 Cerebral palsy, unspecified; R13.10 Dysphagia, unspecified; R62.7 Adult failure to thrive; E03.9 Hypothyroidism, unspecified; F20.9 Schizophrenia, unspecified; K59.00 Constipation, unspecified; F41.9 Anxiety disorder, unspecified; J44.9 Chronic obstructive pulmonary disease, unspecified; Z86.73 Personal history of transient ischemic attack (TIA), and cerebral infarction without residual deficits; Z87.440 Personal history of urinary (tract) infections; Z74.01 Bed confinement status; Z88.8 Allergy status to other drugs, medicaments and biological substances
CPT/HCPCS: 36245; 36569; 36600; 71250; 76937; 82805; 83735; 84100; 84132; 84145; 84443; 87040; 87070; 87081; 87205; 87324; 87449; 87804; 93005; 93306; 93308; 94002; 94003; 94640; 94799; G0378; J0282; J0461; J0712; J1160; J2060; J2370; J2543; J2704; J3010; J3370; J3480; J3490; J7030; J7040; J7050; J7060